=== PATIENT | female | born 1965 | race Caucasian/White ===

== ENCOUNTER 2023-11-28 12:28 | Emergency (ER) | payer OTHER, SELFPAY ==
[2023-11-28 12:32] VITALS: BP 164/88
[2023-11-28 13:09] LABS: % Basophils 0.5 % (0-2); % Eosinophils 1.5 % (0-6); % Immature Granulocytes 0.3 % (0-0.5); % Lymphocytes 47.1 % (20.5-51.1); % Monocytes 7.6 % (1.7-9.3); Absolute Eosinophils 0.1 10^3/uL (0-0.7); Absolute Lymphocytes 3.7 10^3/uL (1.2-3.4); Absolute Monocytes 0.6 10^3/uL (0.1-0.6); Absolute Neutrophils 3.3 10^3/uL (1.4-6.5); Hematocrit 40.9 % (37.0-47.0); Hemoglobin 13.6 g/dL (12.0-16.0); Mean Corp Hgb Conc. 33.3 g/dL (33.0-37.0); Mean Corpuscular Hgb 28.8 pg (27.0-31.0); Mean Corpuscular Volume 86.5 fL (81.0-99.0); Mean Platelet Volume 9.7 fL (7.4-10.4); Nucleated Red Blood Cells % 0 %; Platelet Count 299 10^3/uL (130-400); Red Blood Cell Count 4.73 10^6/uL (4.20-5.40); Red Cell Dist. Width 12.5 % (11.5-14.5); White Blood Cell Count 7.8 10^3/uL (4.8-10.8)
[2023-11-28 13:23] LABS: ALT (SGPT) 23 U/L (0-35); AST (SGOT) 18 U/L (14-36); Albumin 4.1 g/dl (3.5-5.0); Alkaline Phosphatase 103 U/L (38-126); Blood Urea Nitrogen 16 mg/dl (7-17); Calcium 10.3 mg/dl (8.4-10.2); Carbon Dioxide 26 mmol/L (22-30); Chloride 108 mmol/L (98-107); Glucose 207 mg/dl (70-99); Sodium 136 mmol/L (135-145); Total Bilirubin 0.5 mg/dl (0.2-1.3); Total Protein 6.7 g/dl (6.3-8.2); eGFR > 60.00
[2023-11-28 13:25] LABS: Urine Albumin 3+ (Neg - Trace); Urine Bilirubin 1+ (Negative); Urine Character Very Cloudy (Clear); Urine Color Red; Urine Glucose 2+ (Negative); Urine Ketone Trace (Negative); Urine Leukocyte Trace (Negative); Urine Nitrite Negative (Negative); Urine Occult Blood 4+ (Negative); Urine Specific Gravity 1.025 (<1.030); Urine Urobilinogen Negative (Neg - 1+)
[2023-11-28 13:39] LABS: Potassium 4.7 mmol/L (3.5-5.1)
[2023-11-28 14:02] LABS: Urine Red Blood Cell >100 /HPF (0-2)
--- NOTE | 2023-11-28 15:16 | ED.GENMED ---
History of Present Illness
General
Chief Complaint: Flank Pain
Source: patient
Time Seen by Provider: 11/28/23 14:53
Travel History
Have you had any contact with someone who has COVID-19?: No
Do you have any symptoms of coronavirus? Fever > 100 degrees, chills, cough, shortness of breath, sore throat, loss of taste or smell, muscle aches, or headache?: No
History of Present Illness
History of Present Illness:
58-year-old female with history coronary artery disease and kidney stones presents with severe right flank pain with nausea and hematuria. Pain started several weeks ago but increased over the past several days. She noted blood in the urine today.
No measurable fever. She is nauseous without vomiting. She has had multiple urologic procedures including lithotripsy and other interventions for her kidney stones. She feels as though this feels similar to prior kidney stones. No other
complaints at this time
Past History
Past History
ED Past Medical History: CAD, HTN, Hypercholesterolemia, NIDDM, [place], Valvular disease and Other
ED Past Surgical History: Appendectomy, Cardiac (Multiple cardiac stents) and Gynecological ( section)
Patient has exhibited threatening behavior?: No
Social History
Tobacco: Smoker
Alcohol: Occasional
Drug: None
Personal:
Living: with family
Employment: Employed
Family History
Family History: Other (reviewed and non-contributory)
Phy Exam
Physical Exam
Physical Exam:
General: Uncomfortable appearing female no acute respiratory distress
HEENT: Normocephalic atraumatic
Heart: Regular rate and rhythm
Lungs: Clear to auscultation bilaterally no wheezing
Abdomen: Soft tender over the right costovertebral angle no guarding or rebound normal bowel sounds nondistended
Extremities: No cyanosis
Course
Orders/Labs/Results
Orders:
Orders
11/28/23 12:47
CMP [Comprehensive Metabolic Panel] Urgent
Urinalysis Reflex To Culture Urgent
Date Specimen was Collected: 11/28/23
Time Specimen was Collected: 12:35
Urine Microscopic Reflex Cult Urgent
11/28/23 12:50
CBC/With Diff [Complete Blood Count/With Diff] Urgent
11/28/23 15:00
CT Abd/pel Without Iv Or Oral Urgent
Comment:
Reason For Exam: right flank pain, hematuria
0.9% Sodium Chloride 1000 ml [Nss] 1,000 ml IV BOLUS
11/28/23 15:07
Ondansetron Injectable [Zofran] 4 mg IV NOW STA
11/28/23 15:08
HYDROmorphone [Dilaudid] 0.5 mg IV NOW STA
11/28/23 16:01
HYDROmorphone [Dilaudid] 0.5 mg IV NOW STA
11/28/23 18:14
HYDROmorphone [Dilaudid] 0.5 mg IV NOW STA
Ondansetron Injectable [Zofran] 4 mg IV NOW STA
Abnormal Lab Results
11/28/23 11/28/23
12:47 12:50
Absolute Lymphs (auto) 3.7 H 10^3/uL
(1.2-3.4)
Chloride 108 H mmol/L
(98-107)
Glucose 207 H mg/dl
(70-99)
Calcium 10.3 H mg/dl
(8.4-10.2)
Urine Ketones Trace A
(Negative)
Ur Occult Blood Reflex 4+ A
(Negative)
Urine Bilirubin 1+ A
(Negative)
Leukocyte Esterase Rfl Trace A
(Negative)
Urine RBC >100 A /HPF
(0-2)
Urine Glucose 2+ A
(Negative)
Urine Albumin (Reflex) 3+ A
(Neg - Trace)
11/28/23 12:50
11/28/23 12:47
Vital Signs
Initial and Last Documented VS:
Initial Vital Signs
Temp Pulse Resp BP Pulse Ox
99.2 F 68 16 164/88 98
11/28/23 12:32 11/28/23 12:32 11/28/23 12:32 11/28/23 12:32 11/28/23 12:32
Last Documented Vital Signs
Temp Pulse Resp BP Pulse Ox
99.2 F 53 18 127/64 99
11/28/23 12:32 11/28/23 17:57 11/28/23 17:57 11/28/23 17:57 11/28/23 17:57
MDM/Problems Addressed
Differential Diagnosis Includes:
Right flank pain and urinary symptoms with hematuria. UTI versus pyelonephritis versus ureterolithiasis.
Check labs and urine. CT pending. Patient is on anticoagulants cannot do NSAIDs. Zofran fluids and Dilaudid ordered
*Critical Care Note
Total Time (30-74mins, 75-104mins- exclusive of procedures): Not Applicable
Update Note
Update Note:
CT demonstrates 3 mm stone at the right UVJ. No UTI. Patient feeling better after medication and reassessment. Will trial passage at home with medications for pain nausea and Flomax. Urology referral made and return to [facility]
ED Attending Note
-
Portions of this chart may have been created with voice recognition software.� Occasional wrong word or��sound alike� substitutions may have occurred due to the inherent limitations of voice recognition software.
Discharge Plan
Departure
Patient Disposition: Home (Routine Discharge)
Date of Disposition: 11/28/23
Time of Disposition: 18:21
Patient with high blood pressure during this ER visit?: No
Discharge Problem:
Kidney stone
Instructions: Kidney Stones (DC), How to Strain Your Urine
Prescriptions:
New
oxycodone-acetaminophen [Percocet] 5-325 mg tablet
1 tab PO Q6HPRN PRN (Reason: pain) Qty: 10 0RF
ondansetron 4 mg tablet,disintegrating
4 mg PO Q8H PRN (Reason: nausea and vomiting) Qty: 10 0RF
tamsulosin [Flomax] 0.4 mg capsule
0.4 mg PO DAILY Qty: 14 0RF
No Action
lisinopril 20 MG tablet
40 mg PO DAILY
aspirin 81 MG tablet,delayed release (DR/EC)
81 mg PO DAILY
glimepiride 2 MG tablet
2 mg PO DAILY
amlodipine 10 MG tablet
10 mg PO DAILY
sitagliptin phosphate [Januvia] 100 MG tablet
100 mg PO DAILY
ticagrelor [Brilinta] 90 MG tablet
90 mg PO BID Qty: 180 3RF
atorvastatin 80 MG tablet
80 mg PO QPM Qty: 90 3RF
nitroglycerin 0.4 MG tablet, sublingual
0.4 mg sublingual [id number] PRN (Reason: chest pain ) Qty: 25 5RF
Rx Instructions:
Take 1 tab under the tongue every 5 minutes x 3 doses prn chest pain
Referrals:
Ellen Herrera PA-C [Family Provider] -
Randy Thompson Jr., MD [Active] -
Activity Restrictions/Additional Instructions:
Drink plenty of fluids. Use pain medicine as needed and nausea medicine as needed. Take Flomax daily as directed. Please return here for increased vomiting fever or intractable pain. Follow-up with urology otherwise
Interventions
Interventions:
RE-Sprgdp-Evmhyrzovi Assessment Last Done: 11/28/23 15:34
ED-Female Genitourinary Assessment Last Done: 11/28/23 15:34
[2023-11-28] MEDS: NSS 1000 IV (15:28)
[2023-11-28] MEDS: ZOFRAN 4 MG IV ×2 (15:28→18:23)
[2023-11-28] MEDS: DILAUDID 0.5 MG IV ×3 (15:28→18:24)
[2023-11-28 17:57] VITALS: BP 127/64
== END 2023-11-28 18:39 | disposition home or self-care (01) ==
LOC: EMR 12:28
PROVIDERS: Emergency Medicine; EMERGENCY PHYSICIAN Emergency Medicine; FAMILY PHYSICIAN Physician Assistant Medical
DX: N20.0 Calculus of kidney (principal); R11.0 Nausea; I25.10 Atherosclerotic heart disease of native coronary artery without angina pectoris; I10 Essential (primary) hypertension; E11.9 Type 2 diabetes mellitus without complications; E78.00 Pure hypercholesterolemia, unspecified; I38 Endocarditis, valve unspecified; F17.200 Nicotine dependence, unspecified, uncomplicated; I25.2 Old myocardial infarction; Z87.442 Personal history of urinary calculi; Z95.5 Presence of coronary angioplasty implant and graft; Z79.82 Long term (current) use of aspirin; Z79.84 Long term (current) use of oral hypoglycemic drugs; Z88.1 Allergy status to other antibiotic agents; Z88.3 Allergy status to other anti-infective agents; Z91.048 Other nonmedicinal substance allergy status
CPT/HCPCS: 99284; 96374; 96375; 96361; 96376 ×3; 74176; 80053; 81003; 81015; 85025

== ENCOUNTER 2024-02-11 11:17 | Inpatient (IN) | payer OTHER, SELFPAY ==
[2024-02-10 19:44] VITALS: BP 194/97; BMI 32.2
[2024-02-10 20:07] LABS: % Basophils 0.6 % (0-2); % Eosinophils 1.7 % (0-6); % Immature Granulocytes 0.2 % (0-0.5); % Lymphocytes 50.4 % (20.5-51.1); % Monocytes 8.2 % (1.7-9.3); % Neutrophils 38.9 % (42.2-75.2); Absolute Basophils 0.1 10^3/uL (0-0.2); Absolute Eosinophils 0.2 10^3/uL (0-0.7); Absolute Lymphocytes 4.5 10^3/uL (1.2-3.4); Absolute Monocytes 0.7 10^3/uL (0.1-0.6); Absolute Neutrophils 3.5 10^3/uL (1.4-6.5); Hematocrit 40.7 % (37.0-47.0); Mean Corp Hgb Conc. 34.4 g/dL (33.0-37.0); Mean Corpuscular Hgb 29.4 pg (27.0-31.0); Mean Corpuscular Volume 85.3 fL (81.0-99.0); Mean Platelet Volume 9.7 fL (7.4-10.4); Nucleated Red Blood Cells % 0 %; Platelet Count 310 10^3/uL (130-400); Red Blood Cell Count 4.77 10^6/uL (4.20-5.40); Red Cell Dist. Width 12.6 % (11.5-14.5); White Blood Cell Count 8.9 10^3/uL (4.8-10.8)
[2024-02-10 20:26] LABS: ALT (SGPT) 24 U/L (0-35); AST (SGOT) 21 U/L (14-36); Albumin 4.3 g/dl (3.5-5.0); Alkaline Phosphatase 105 U/L (38-126); Blood Urea Nitrogen 22 mg/dl (7-17); Carbon Dioxide 28 mmol/L (22-30); Chloride 106 mmol/L (98-107); Estimated Creatinine Clearance 110 ml/min; Glucose 131 mg/dl (70-99); Potassium 3.9 mmol/L (3.5-5.1); Sodium 137 mmol/L (135-145); Total Bilirubin 0.3 mg/dl (0.2-1.3); Total Protein 7.1 g/dl (6.3-8.2); eGFR > 60.00
[2024-02-10 20:29] LABS: Troponin I < 0.012 ng/ml
[2024-02-10 21:22] VITALS: BP 164/96
--- NOTE | 2024-02-10 21:45 | ED.GENMED ---
History of Present Illness
General
Chief Complaint: Chest Pain
Source: patient
Exam Limitations: none
Time Seen by Provider: 02/10/24 21:50
Nursing documentation reviewed up to this point in time: agreed with
Travel History
Have you had any contact with someone who has COVID-19?: No
Do you have any symptoms of coronavirus? Fever > 100 degrees, chills, cough, shortness of breath, sore throat, loss of taste or smell, muscle aches, or headache?: No
History of Present Illness
History of Present Illness:
58-year-old female presents emergency room complaining of chest pain and diaphoresis. She had pain earlier, and it worsened, and had left arm pain accompanying. She has a history of coronary artery disease with 6 stents.
Past History
Past History
ED Past Medical History: CAD, HTN, Hypercholesterolemia, NIDDM, [place], Valvular disease and Other
ED Past Surgical History: Appendectomy, Cardiac (Multiple cardiac stents) and Gynecological ( section)
Patient has exhibited threatening behavior?: No
Social History
Tobacco: Smoker
Alcohol: Occasional
Drug: None
Personal:
Living: with family
Employment: Employed
Family History
Family History: Other (reviewed and non-contributory)
Review of Systems
Review of Systems
Allergies reviewed?: Yes
All Other Systems: Not applicable
Constitutional: Reports no symptoms
EENT: Reports no symptoms
Respiratory: Reports no symptoms
Cardiac: Reports diaphoresis and palpitations
ABD/GI: Reports no symptoms
: Reports no symptoms
Musculoskeletal: Reports no symptoms
Skin: Reports no symptoms
Neurological: Reports no symptoms
Endocrine: Reports no symptoms
Hematologic/Lymphatic: Reports no symptoms
Psychiatric: Reports no symptoms
Phy Exam
Physical Exam
Physical Exam:
Physical Exam
General: Afebrile
Neck: supple. no meningeal signs. normal posterior pharynx
Heart: s1/s2 regular rate and rhythm, no murmur. equal radial
pulses.
HEENT: Pupils equal round reactive to light, EOMI
Lungs: no acute respiratory distress. clear bilaterally
Abdomen: normal bowel sounds. not tender. no CVAT
Neuro: alert and oriented. no focal neurological deficits cranial nerves II through XII intact
Skin: no rash
Psychiatric: well kept. interactive and cooperative
Extremities: no edema. no calf tenderness. negative homans. good distal pulses
Scores
Heart Score for Chest Pain Patients
STEMI patient?: No
History: Moderately Suspicious
ECG: Normal
Age: >45 - <65 years
Risk Factors: >/= 3 Risk Factors or History of CAD
Troponin: </= Normal Limit
Heart Score for Chest Pain Patients: 4
Heart Score Risk: 20.3% MACE over next 6 weeks
Course
Orders/Labs/Results
Orders:
Orders
02/10/24 19:42
Electrocardiogram (*1) Urgent
Reason for Study: Chest Pain
Cardiac Monitoring- Treatment ONCE
EKG- Treatment ONCE
IV Insert/Care/Rem.- Treatment PRN
O2 Therapy [RESP] Urgent
Titrate/Wean O2 to maintain O2 sat greater than (%): 90
Special Instructions: Maintain sats >/=90%
Pulse Ox/spot Check [RESP] Urgent
Quantity: 1
Special Instructions: ON ROOM AIR
02/10/24 19:55
Complete Blood Count/With Diff Urgent
Comprehensive Metabolic Panel Urgent
Troponin I Urgent
02/10/24 22:17
Aspirin 325 mg PO NOW STA
02/10/24 22:19
Nitroglycerin Sublingual [Nitrostat (Sublingual)] 0.4 mg SL NOW STA
Abnormal Lab Results
02/10/24
19:55
Absolute Lymphs (auto) 4.5 H 10^3/uL
(1.2-3.4)
Absolute Monos (auto) 0.7 H 10^3/uL
(0.1-0.6)
Neutrophils % 38.9 L %
(42.2-75.2)
BUN 22 H mg/dl
(7-17)
Glucose 131 H mg/dl
(70-99)
Calcium 11.0 H mg/dl
(8.4-10.2)
02/10/24 19:55
02/10/24 19:55
Vital Signs
Initial and Last Documented VS:
Initial Vital Signs
Temp Pulse Resp BP Pulse Ox
98.5 F 67 18 194/97 98
02/10/24 19:44 02/10/24 19:44 02/10/24 19:44 02/10/24 19:44 02/10/24 19:44
Last Documented Vital Signs
Temp Pulse Resp BP Pulse Ox
98.5 F 69 10 158/78 95
02/10/24 19:44 02/10/24 22:30 02/10/24 22:30 02/10/24 22:13 02/10/24 22:30
MDM/Problems Addressed
Differential Diagnosis Includes:
ACS, GERD
MDM/Problems Addressed:
58-year-old female with chest pain, cannot rule out ACS. Admit to hospitalist. Discussed with Dr. Shine, cardiology who requests to see in consult.
Chronic conditions affecting care: DM and CAD
Acute Exacerbation and/or Progression of Chronic Illness: DM and CAD
*Pulse Oximetry
Patient hypoxic: no
*EKG
Interpreted by ED Provider?: Yes
EKG Intrepretation Date: 02/10/24
EKG Intrepretation Time: 19:44
Interpretation: abnormal
Comparison EKG: no changes
Heart Rate: 56
Rate: bradycardiac
Rhythm: sinus
Reagan: normal axis
Interval: normal interval
QRS Pattern: normal QRS
Ischemia: no ischemia
*Tool Grinder Operator External Interpretation
Rate: bradycardiac
Interpretation: abnormal
Heart Rate: 56
Rhythm: sinus
*Critical Care Note
Total Time (30-74mins, 75-104mins- exclusive of procedures): Not Applicable
Data Reviewed
Review of Other/Old Records Reveals: Operative Reports (Prior cardiac catheterization by Dr. Epps, 01/09/2022, PCI of 90% proximal mid circumflex lesion, successful PCI of 70% diagonal lesion)
Patient Management
Social determinants of health affecting care: Living situation
Discussion with other providers: Hospitalist and Oriental Rug Stretcher (Discussed with Dr. Shine, cardiology, recommends hospitalist admission)
Escalation/DeEscalation of care consider admission/obs:
Admit indicated
ED Attending Note
-
Portions of this chart may have been created with voice recognition software.� Occasional wrong word or��sound alike� substitutions may have occurred due to the inherent limitations of voice recognition software.
Discharge Plan
Departure
Patient Disposition: Admit
Date of Disposition: 02/10/24
Time of Disposition: 22:44
Admit to: IVU
Presentation/result/management discussed w/ accepting MD/DO: Hospitalist
Patient with high blood pressure during this ER visit?: Yes
Condition: Good
Discharge Problem:
Unstable angina
Prescriptions:
No Action
lisinopril 20 MG tablet
40 mg PO DAILY
aspirin 81 MG tablet,delayed release (/EC)
81 mg PO DAILY
glimepiride 2 MG tablet
2 mg PO DAILY
amlodipine 10 MG tablet
10 mg PO DAILY
sitagliptin phosphate [Januvia] 100 MG tablet
100 mg PO DAILY
ticagrelor [Brilinta] 90 MG tablet
90 mg PO BID Qty: 180 3RF
atorvastatin 80 MG tablet
80 mg PO QPM Qty: 90 3RF
nitroglycerin 0.4 MG tablet, sublingual
0.4 mg sublingual [id number] PRN (Reason: chest pain ) Qty: 25 5RF
Rx Instructions:
Take 1 tab under the tongue every 5 minutes x 3 doses prn chest pain
oxycodone-acetaminophen [Percocet] 5-325 mg tablet
1 tab PO Q6HPRN PRN (Reason: pain) Qty: 10 0RF
ondansetron 4 mg tablet,disintegrating
4 mg PO Q8H PRN (Reason: nausea and vomiting) Qty: 10 0RF
tamsulosin [Flomax] 0.4 mg capsule
0.4 mg PO DAILY Qty: 14 0RF
Interventions
Interventions:
*Risk Screen - Suicide Last Done: 02/10/24 19:44
*General Assessment Last Done: 02/10/24 19:44
*Neglect/Abuse Screening Last Done: 02/10/24 19:44
ED- Fall Risk Assessment Last Done: 02/10/24 19:44
*ED COVID-19 Vaccine History Last Done: 02/10/24 19:44
ED- Cardiac Assessment Last Done: 02/10/24 21:50
Discharge Date and Time
Print Language: [place]
[2024-02-10 22:13] VITALS: BP 158/78
[2024-02-10] MEDS: NITROSTAT (SUBLINGUAL) 0.400000000000000022 MG SL (22:26)
[2024-02-10] MEDS: ASPIRIN 325 MG PO (22:26)
[2024-02-10 23:00] VITALS: BP 168/80
--- NOTE | 2024-02-10 23:12 | HPS.HSE ---
Family Physician
-
Family Physician: Ellen Herrera PA-C
Chief Complaint
-
Chest pressure
History of Present Illness
58-year-old female complaining of midsternal chest pressure with indigestion, diaphoresis, nausea, headache on and off since this morning then with development of pain to left forearm. She took 1 nitroglycerin prior to arrival with some relief was
given additional nitroglycerin in triage which took pain from 6 out of 10 down to current 3 out of 10. She denies fever, chills, sore throat, palpitations, shortness of breath, cough, abdominal pain, vomiting, diarrhea, urinary symptoms. She has
past medical history of CAD/[place] with 6 stents, HTN, HLD, DM2,former smoker stopped December 2023, chronic left shoulder pain with slight limited range of motion
Medical History
Past Medical History
Past Medical History: Reports Other
Additional Past Medical History:
CAD/[place] with 6 stents(12/17/2021 4 stents, and December 2021 - stents)
HTN
HLD
DM2
valvular disease
Former smoker stopped December 2023
Renal calculi
Chronic left shoulder pain with slight limited range of motion
Past Surgical History: Reports Other
Additional Past Surgical History:
Cardiac stents x 6 (12/17/2021 4 stents, and December 2021 stents)
section
Lithotripsy cystoscopy secondary to kidney stones
Social History
Tobacco: Former Smoker (30-year 1/2 pack/day stopped December 2023)
Alcohol: None
Drug: None
Personal:
Living: With Family
Employment: Retired
Family History
Family History: Early CAD (Mother age 46 [place], father age 63 CABG/[place] Brother age 52 [place])
Allergies / Home Medications
Allergies reflects when Allergies were last updated in [facility].
Home Medications with original date entered in [facility]
Allergy/Medication List:
Allergies
Allergy/AdvReac Type Severity Reaction Status Date / Time
adhesive Allergy Intermediate Rash Verified 02/10/24 19:42
cefuroxime axetil Allergy Swelling Verified 02/10/24 19:42
[From Ceftin]
Cephalosporins Allergy Swelling Verified 02/10/24 19:42
Home Medications
aspirin 81 mg tablet,delayed release 81 mg PO DAILY Blood clot prevention/tx 12/17/21
atorvastatin 80 mg tablet 80 mg PO DAILY 02/10/24
diltiazem HCl 240 mg capsule,extended release 24 hr 240 mg PO DAILY 02/10/24
ezetimibe 10 mg tablet 10 mg PO DAILY 02/10/24
glimepiride 4 mg tablet 4 mg PO DAILY 02/10/24
lisinopril 40 mg tablet 40 mg PO DAILY 02/10/24
Review of Systems
-
History Source: Patient
A 12 point ROS was completed and negative except as noted: Yes
Constitutional: Denies Fever or Chills
EENT: Denies Sore Throat or Runny Nose
Respiratory: Denies Cough or Trouble Breathing
Cardiac: Reports Chest Pain (Midsternal chest pressure) and Diaphoresis; Denies Palpitations or Syncope
Abdomen/GI: Reports Nausea; Denies Abdominal Pain, Vomiting, Diarrhea, Constipated, Bloody Stools, Black Stools or Anorexia
: Denies Dysuria, Frequency, Flank Pain, Incontinence, Difficulty Voiding, Urgency or Bleeding
Musculoskeletal: Denies Joint Pain or Edema
Skin: Denies Itching or Rash
Neurological: Denies Dizzy, Headache or Weakness
Endocrine: Reports No Symptoms
Hematologic/Lymphatic: Reports No Symptoms
Psych: Reports Calm
Physical Exam
Vital Signs
Vital Signs
Temp Pulse Resp BP Pulse Ox
98.5 F 69 10 158/78 95
02/10/24 19:44 02/10/24 22:30 02/10/24 22:30 02/10/24 22:13 02/10/24 22:30
Physical Exam
General: Conversant and Pain (3 out of 10 midsternal chest pressure); No Fever or Chills
HEENT: NormoCephalic, Anicteric, PERRLA, Huson Conjunctivae and No Ptosis; No Pharyngeal Efythema
Respiratory: Clear; No Wheezes, Rales or Rhonchi
Cardiac: Bradycardia (Sinus); No Murmur, Rub, Gallop or Peripheral Edema
Breast: Deferred by me
GI: Soft, Non Tender, Non Distended, Normal Bowel Sounds and No Hepatosplenomegaly
Rectal: Deferred by Provider
Genito-urinary: Deferred by me
Musculoskeletal: No Clubbing, No Cyanosis and No Edema
Skin: Warm and Dry; No Rash
Neuro: AO x 3, No Motor Deficits, Nonfocal/grossly intact, Cranial Nerves Intact and No Sensory Deficits; No Slurred Speech, Facial Droop or Tremors
Psych: Calm
Laboratory Results
-
02/10/24 19:55
02/10/24 19:55
Laboratory Results
Total Bilirubin 0.3 mg/dl (0.2-1.3) 02/10/24 19:55
AST 21 U/L (14-36) 02/10/24 19:55
ALT 24 U/L (0-35) 02/10/24 19:55
Alkaline Phosphatase 105 U/L (38-126) 02/10/24 19:55
Troponin I < 0.012 ng/ml 02/10/24 19:55
Impression/Plan
-
Impression/plan:
Obs IVU
#Chest pain concern for unstable angina
#CAD/[place] x 6 stents( 4 dec 17 2021, 2 in end dec 2021) storng family hx
-Trend troponins
-Iv morphine prn pain
- Iv protonix
-N.p.o. after midnight in case cardiac cath needed
-Consult CBC cardiology
-Continue aspirin 81 mg daily, atorvastatin 80 mg daily, Zetia 10 mg daily
-Check lipid profile
EKG sinus bradycardia 58 bpm, QTc 428 MS no significant change from July 2022
2D echo 04/22/2022: EF 55 to 60%, normal LVS LVSF, no wall abnormalities, aortic sclerosis approaching stenosis
#Hypercalcemia
Calcium 11.0
Check PTH, vitamin D
#HTN-benign
158/78
-Continue lisinopril 40 mg daily, diltiazem 240 mg daily
#DM2
-Accu-Cheks with SSI, check HgbA1c
-HOLD glimepiride 4 mg daily
# Former nicotine abuse
-Stopped approx-6 weeks ago December 2023, prior 30 years 1/2 pack/day
DVT prophylaxis
sq heparin
Full code
--- NOTE | 2024-02-10 23:35 | W.PN.UPDATE ---
Update Note
Progress Note Update
This is an addendum to the H&P written by INES Snow on 02/10/2024.
Patient seen and examined independently with SPEEDBOAT DRIVER. 58-year-old female past medical history of CAD status post 6 stents, hypertension, hypercholesteremia, diabetes, presenting with chest pain described as pressure/fullness associated with sweating and
nausea and left arm pain similar to prior heart attacks. Nitro does help but pain returned afterwards.
EKG shows sinus bradycardia, LVH, without any ischemic changes. Concern for unstable angina. Troponin negative. Trend troponins. Aspirin given. As needed morphine for pain. Start PPI. N.p.o. past midnight. Cardiology consulted.
Patient with hypercalcemia on labs. Check PTH, vitamin D.
[2024-02-10] MEDS: PROTONIX IV 40 MG IV (23:46)
[2024-02-11] VITALS (17 sets, daily range): BP systolic 114–201; BP diastolic 60–101; BMI 32.2
[2024-02-11 01:43] LABS: Troponin I < 0.012 ng/ml
--- NOTE | 2024-02-11 01:58 | PTCARENOTE ---
Patient admitted to IVU. Chest pain resolved, SB on telemetry, BP elevated, cuffed changed to a long cuff, 169/79. Troponin number 2 collected and resulted WNL. Plan of care reviewed. Patient comfortable in bed, lights off, call chase in reach
[2024-02-11] MEDS: TYLENOL 650 MG PO ×3 (03:12→18:24)
--- NOTE | 2024-02-11 03:17 | PTCARENOTE ---
Patient with lower back pain. Repositioned in bed,Tylenol given
[2024-02-11 06:11] LABS: % Basophils 0.6 % (0-2); % Eosinophils 2.1 % (0-6); % Immature Granulocytes 0.2 % (0-0.5); % Lymphocytes 57.5 % (20.5-51.1); % Monocytes 8.6 % (1.7-9.3); Absolute Basophils 0.1 10^3/uL (0-0.2); Absolute Eosinophils 0.2 10^3/uL (0-0.7); Absolute Lymphocytes 4.8 10^3/uL (1.2-3.4); Absolute Monocytes 0.7 10^3/uL (0.1-0.6); Absolute Neutrophils 2.6 10^3/uL (1.4-6.5); Hematocrit 39.2 % (37.0-47.0); Hemoglobin 12.9 g/dL (12.0-16.0); Mean Corp Hgb Conc. 32.9 g/dL (33.0-37.0); Mean Corpuscular Hgb 28.7 pg (27.0-31.0); Mean Corpuscular Volume 87.1 fL (81.0-99.0); Mean Platelet Volume 9.8 fL (7.4-10.4); Nucleated Red Blood Cells % 0 %; Platelet Count 247 10^3/uL (130-400); Red Cell Dist. Width 12.7 % (11.5-14.5); White Blood Cell Count 8.3 10^3/uL (4.8-10.8)
--- NOTE | 2024-02-11 06:20 | PTCARENOTE ---
Back pain relieved with repositioning and Tylenol. Labs and EKG completed
[2024-02-11 06:29] LABS: ALT (SGPT) 22 U/L (0-35); AST (SGOT) 19 U/L (14-36); Albumin 3.7 g/dl (3.5-5.0); Alkaline Phosphatase 99 U/L (38-126); Blood Urea Nitrogen 21 mg/dl (7-17); Calcium 10.6 mg/dl (8.4-10.2); Carbon Dioxide 25 mmol/L (22-30); Chloride 104 mmol/L (98-107); Estimated Creatinine Clearance 111 ml/min; Glucose 149 mg/dl (70-99); HDL Cholesterol 46 mg/dl; LDL Cholesterol, Calculated 161 mg/dl; Sodium 137 mmol/L (135-145); Total Bilirubin 0.3 mg/dl (0.2-1.3); Total Cholesterol 271 mg/dl (50-199); Total Protein 6.1 g/dl (6.3-8.2); Triglyceride 321 mg/dl (10-149); Very Low Density Lipoprotein 64 mg/dl (0-30); eGFR > 60.00
[2024-02-11 06:34] LABS: Troponin I < 0.012 ng/ml
[2024-02-11 06:40] LABS: Vitamin D, 25-OH*** 22.8 ng/mL (30-80)
[2024-02-11] MEDS: NOVOLOG FLEXPEN-LOW RESISTANCE SC ×2 (07:05→14:33)
[2024-02-11] MEDS: LIPITOR 80 MG PO (08:26)
[2024-02-11] MEDS: ASPIR LOW (ENTERIC COATED) 81 MG PO (08:26)
[2024-02-11] MEDS: ZETIA 10 MG PO (08:26)
[2024-02-11] MEDS: ZESTRIL 40 MG PO (08:28)
[2024-02-11] MEDS: PROTONIX IV 40 MG IV (08:29)
[2024-02-11] MEDS: NSS (PRESERVATIVE FREE) 10 ML IV (08:30)
[2024-02-11] MEDS: HEPARIN 5000 UNITS SC ×2 (08:33→21:44)
--- NOTE | 2024-02-11 08:51 | PTCARENOTE ---
Cardizem CD dose held this am as per parameter, pt's HR 49.
[2024-02-11 09:21] LABS: Glucose - Point of Care 163 mg/dl (70-99)
[2024-02-11 09:40] LABS: Glycohemoglobin (HgbA1c) 8.4 % (4.0-5.6)
--- NOTE | 2024-02-11 09:56 | CON.CAR ---
Addendum entered and electronically signed by Alvaro Norwood MD 02/11/24 11:08:
I saw and examined the patient.
The PUBLISHING EDITOR's note was reviewed and I agree with the note.
Comment: 58F with active tobacco use, DMII, and recurrent/severe CAD admitted with CP reminiscent of her angina/CO/PCI pain. EKG and troponin are reassuring.
- Unstable angina -> add UFH. Continue other medical therapy
- We discussed escalating med Rx only, adding stress test, or proceeding to LHC. We discussed risks, benefits, and alternatives of each. I felt med RX & LHC was best strategy given her poorly controlled risk factors and aggressive disease. She
agreed
Original Note:
Consultation
Consultation Request
Date/Time Consultation Requested: 02/10/24 [id number]
Date/Time Consultation Performed: 02/11/24 0950
Requesting Provider: Lisa Snow NP
Performing Provider: Joaquina CAVAZOS for Dr. Norwood
Reason for Consultation: Chest discomfort
Medical History
-
Chief Complaint: chest discomfort
History of Present Illness:
58 y/o female with history of CAD with multiple stents, hypertension, DM, smoker, and anxiety who is here for evaluation of chest discomfort. Briefly, yesterday AM she woke up and felt some epigastric burning, which worsened throughout the day.
Later, she had nausea, left arm pain, 'hot flashes', and shoulder blade discomfort. She was also fatigued. She took Prilosec and Tums, without help. She took nitro, which helped but then symptoms returned. They got worse throughout the day. She came
to the ER, where EKG and trops fine. She is CP free at the time of my assessment.
Past Medical History
Past Medical History: CAD, HTN, NIDDM and Psychiatric (anxiety)
Social History
Tobacco: Former Smoker (quit a few days ago)
Family History
Family History: Early CAD
Allergies / Home Medications
Allergy/AdvReac Type Severity Reaction Status Date / Time
adhesive Allergy Intermediate Rash Verified 02/11/24 00:57
cefuroxime axetil Allergy Swelling Verified 02/11/24 00:57
[From Ceftin]
Cephalosporins Allergy Swelling Verified 02/11/24 00:57
�Medication �Instructions �Recorded �Confirmed �Type
aspirin 81 mg tablet,delayed 81 mg PO DAILY Blood clot 12/17/21 02/11/24 History
release prevention/tx
atorvastatin 80 mg tablet 80 mg PO DAILY High Cholesterol 02/10/24 02/11/24 History
diltiazem HCl 240 mg 240 mg PO DAILY Blood Pressure 02/10/24 02/11/24 History
capsule,extended release 24 hr
ezetimibe 10 mg tablet 10 mg PO DAILY High Cholesterol 02/10/24 02/11/24 History
glimepiride 4 mg tablet 4 mg PO DAILY Diabetes 02/10/24 02/11/24 History
lisinopril 40 mg tablet 40 mg PO DAILY Blood Pressure 02/10/24 02/11/24 History
Review of Systems
-
History Source: Patient
All other systems: Negative unless noted
Constitutional: Other ('hot flashes')
Cardiac: Chest Pain
Abdomen/GI: Nausea
Musculoskeletal: Other (shoulder discomfort, arm pain)
Physical Exam
Vital Signs
Temp Pulse Resp BP Pulse Ox
98.3 F 46 16 142/87 96
02/11/24 07:00 02/11/24 08:40 02/11/24 07:00 02/11/24 07:15 02/11/24 07:53
Lab Results
02/11/24 05:43
02/11/24 05:44
Troponin I < 0.012 ng/ml 02/11/24 05:43
Physical Exam
General: Well Developed, Well Nourished and No Apparent Distress
HEENT: Normocephalic and Anicteric
Respiratory: Clear and Non Labored Respirations
Cardiac: Regular Rhythm (SB) and Murmur (II/ systolic)
Breast: Deferred by me
Musculoskeletal: No Edema
Skin: Warm and Dry
Neuro: AO x 3
Impression / Plan
-
Chest discomfort:
-trops and EKGs unremarkable
-echo pending
-concerning for unstable angina (high risk diagnosis) in this patient with CAD with history of multiple stents with similar symptoms prior to stenting in the past
-ASA administered
-likely cath- will discuss with Dr. Norwood
CAD with history of multiple stents:
-continue aspirin, statin
HTN:
-elevated overnight, now improved
-continue ACEI, dilt held with bradycardia- monitor HR and adjust if needed
Dyslipidemia:
-not well-controlled
-LDL 161 despite atorvastatin and zetia
-PCSK9 inhibitor as OP
DM:
-per primary
-hgbA1C is pending
Smoker:
-quit a few days ago
-we discussed the importance of staying tobacco free
Data Reviewed
-
EKG: Tracing Personally Visualized and interpreted (SB 48 BPM)
Medical Tests (Nuc Med, Echo etc): Report Reviewed by me (echo 04/22/22: LV ejection fraction is 55-60%. Aortic sclerosis approaching stenosis.)
Labs: Labs Reviewed by me
[2024-02-11 10:41] LABS: Intact PTH 66.5 pg/ml (13.6-85.8)
--- NOTE | 2024-02-11 11:07 | ITS.CL.CATH ---
Parole Hearing Officer - Catheterization
Cardiac Catheterization
Procedure Report:
LEFT HEART CATHETERIZATION AND CORONARY INTERVENTION
Date of Procedure: February 11, 2024
Referring: Alvaro Norwood MD
PROCEDURES:
1. Left catheterization, coronary angiogram.
2. Ultrasound-guided access.
3. Successful percutaneous coronary artery intervention of a focal, hazy 80% in-stent restenosis in the distal RCA with a 3.0 x 18 mm Xience dave point drug-eluting stent, postdilated with a 3.0 x 15 mm NC balloon at 18 yanick with an excellent
angiographic result.
INDICATION: Ms Julien is a 58-year-old female with active tobacco use, avl-nqiltpo-fsehidhny type 2 diabetes mellitus, morbid obesity, severe hyperlipidemia despite 2 agents, coronary artery disease status post multiple prior stents in the RCA, left
circumflex/OM, diagonal in 2021 who presents with chest discomfort similar to prior episodes at which time she needed interventions found to have negative troponins with no significant ischemic changes on EKG now being referred for left heart
catheterization to rule out obstructive CAD due to concern for unstable angina.
ACCESS: Right radial artery, 6 Andorran sheath, under ultrasound guidance
HEMODYNAMICS : (mmHg)
AO (s/d) : 172/82
LV (s/d) : 176/10
LVEDP : 18
CORONARY FINDINGS
DOMINANCE: Right.
LEFT MAIN: The left main artery is a large-caliber vessel that trifurcates into the left anterior descending artery a very small caliber ramus intermedius branch and the left circumflex artery. There is minimal luminal irregularities.
LEFT ANTERIOR DESCENDING: The left anterior descending artery is a large-caliber vessel which gives rise to 1 significant diagonal branch. Prior stent in the diagonal branch is widely patent. Mild diffuse atherosclerotic plaque within the LAD.
RAMUS INTERMEDIUS: The ramus intermedius branch is a very small caliber, vestigial vessel.
CIRCUMFLEX: The left circumflex artery is a large-caliber, nondominant vessel giving rise to 1 large marginal branch. Prior stent in the proximal vessel is widely patent as is the stent in OM1. There is mild diffuse atherosclerotic plaque
otherwise.
RIGHT CORONARY ARTERY: The right coronary artery is a large-caliber, dominant vessel which gives rise to the right posterior descending artery and the right posterolateral system. There is a focal, hazy 80% in-stent restenosis within the distal RCA
stent proximal to the RPDA. Prior stents from 2021 in the proximal and RPDA are patent. There is 30 to 40% in-stent restenosis in the proximal RCA. The distal RCA in-stent restenosis was thought to be the culprit for presenting unstable angina
and decision was made to move forward with percutaneous intervention.
CORONARY INTERVENTION: The right coronary artery was selectively engaged using a 6 Andorran JR4 guide catheter. Additional heparin was given to maintain a therapeutic ACT throughout the case. We advanced a 190 cm 0.014' BMW coronary wire across the
distal RCA stenosis with some difficulty into the RPDA. At this point we tried to introduce a 3.0 x 12mm semi-compliant balloon however we could not successfully advance past the mid RCA despite multiple attempts. We attempted rewiring given
concern that the wire may have gotten under the prior stent struts and despite this we kept running into the same issue. At this point a guide liner was introduced to help facilitate delivery of balloons and stents. We were able to successfully
advance the guide liner into the mid RCA and then again struggled advancing the balloon at the same spot. A third attempt was made to rewire the vessel into the RPDA given concern that the wire had gone under a prior stent strut. We were now
successfully able to deliver the 3.0 x 12 mm semi-compliant balloon to help pre-dilate the lesion at 14 yanick with good expansion. A 3.0 x 18 mm Xience dave point drug-eluting stent was introduced and deployed in the distal RCA and postdilated using a
3.0 x 15 mm NC balloon at 18 yanick with an excellent angiographic result. Patient was loaded with 60 mg of prasugrel at the end of the case. No acute complications.
SEDATION: 66 minutes of procedural sedation was utilized. An independent medical care manager was present to assist with and help manage the patient's level of consciousness and physiologic status.
RADIATION SUMMARY: Fluoro Time (min): 11.2, Dose (mGy): 667.6, DAP (Gy.cm2) : 58.7
Closure Device: Vascular band over the right radial artery, 15 cc of air
CONCLUSIONS
1. Successful percutaneous coronary artery intervention of a focal, hazy 80% in-stent restenosis in the distal RCA with a 3.0 x 18 mm Xience dave point drug-eluting stent, postdilated with a 3.0 x 15 mm NC balloon at 18 yanick with an excellent
angiographic result.
2. Non-obstructive coronary artery disease otherwise.
3. Elevated LVEDP at 18 mmHg
RECOMMENDATIONS
1. Wean radial band per protocol.
2. Dual antiplatelet therapy with daily baby aspirin and 10 mg of prasugrel along with high intensity statin, Zetia and antianginal medications as tolerated. Given her LDL is still significantly elevated despite multiple agents, strongly recommend
considering PCSK9 inhibitors in addition to current medications.
3. Aggressive management of cardiovascular risk factors.
4. Strongly encouraged complete smoking cessation.
5. Referral for outpatient cardiac rehab.
Copy to: Cunningham M.D., Adebayo Melendez M.D., Ellen Herrera, D.O.
Margi Alcocer MD, [facility], [facility]
[2024-02-11 11:42] LABS: Hematocrit 38.9 % (37.0-47.0); Hemoglobin 13.3 g/dL (12.0-16.0); Mean Corp Hgb Conc. 34.2 g/dL (33.0-37.0); Mean Corpuscular Hgb 28.7 pg (27.0-31.0); Mean Platelet Volume 9.8 fL (7.4-10.4); Platelet Count 275 10^3/uL (130-400); Red Blood Cell Count 4.63 10^6/uL (4.20-5.40); Red Cell Dist. Width 12.6 % (11.5-14.5); White Blood Cell Count 7.3 10^3/uL (4.8-10.8)
--- NOTE | 2024-02-11 11:52 | CM ---
CM following for DC planning needs.
Met w/patient at bedside to complete initial assessment.
Pt. resides w/ friend in a private, 3 story home. Functionally, patient is indep. w/ ADLs, mobility without the use of any assisted device.
Pt. has RX plan and uses [facility] in [place].
CM to follow for DC planning needs .
[2024-02-11 11:53] LABS: APTT 28.7 Sec (23.4-35.0)
--- NOTE | 2024-02-11 12:29 | PTCARENOTE ---
Unable to hang IV Heparin or give bolus prior to Pt going to laboratory animal caretaker, PTT result was pending. [employer]angelands conservation laborer RN was given report and came to poultry picker PT quickly. Meds have not been verified by pharmacy.
[2024-02-11] MEDS: EFFIENT 60 MG PO (12:45)
[2024-02-11 12:49] LABS: ACT-LR - POC 284 Seconds (116-155)
[2024-02-11 13:07] LABS: ACT-LR - POC 253 Seconds (116-155)
[2024-02-11 13:20] LABS: ACT-LR - POC 277 Seconds (116-155)
[2024-02-11 13:57] LABS: Glucose - Point of Care 135 mg/dl (70-99)
--- NOTE | 2024-02-11 14:44 | W.PN.HOSP.TC ---
Today's Communication/Plan
-
S/p PCI -
DAPT
Zetia, Statin
Assessment / Plan
Assessment / Plan
General: Conversant and Pain (3 out of 10 midsternal chest pressure); No Fever or Chills
HEENT: NormoCephalic, Anicteric, PERRLA, [place] Conjunctivae and No Ptosis; No Pharyngeal Efythema
Respiratory: Clear; No Wheezes, Rales or Rhonchi
Cardiac: Bradycardia (Sinus); No Murmur, Rub, Gallop or Peripheral Edema
Breast: Deferred by me
GI: Soft, Non Tender, Non Distended, Normal Bowel Sounds and No Hepatosplenomegaly
Rectal: Deferred by Provider
Genito-urinary: Deferred by me
Musculoskeletal: No Clubbing, No Cyanosis and No Edema
Skin: Warm and Dry; No Rash
Neuro: AO x 3, No Motor Deficits, Nonfocal/grossly intact, Cranial Nerves Intact and No Sensory Deficits; No Slurred Speech, Facial Droop or Tremors
Psych: Calm
#Unstable Angina
#CAD/OK x 6 stents( 4 dec 17 2021, 2 in end dec 2021) strong family hx
--high prob for ischemic event patient
-cardiac cath today
--Percutaneous coronary artery intervention of a focal, hazy 80% in-stent restenosis in the distal RCA
-Dual antiplatelet therapy with daily baby aspirin and 10 mg of prasugrel along with high intensity statin, Zetia and antianginal medications as tolerated.
-Ideally can start PCSK9 inhibitor as LDL not controlled
-Cardiac Rehab
-Smoking cessation
#Hypercalcemia
Calcium 11.0
Check PTH, vitamin D
#HTN-benign
-Continue lisinopril 40 mg daily, diltiazem 240 mg daily
#DM2
-Accu-Cheks with SSI
-HOLD glimepiride 4 mg daily
-Hga1c - 8.4 - will need titration outpatient
#Tobacco use
-cessation advised
DVT prophylaxis
sq heparin
Full code
Total time spent on today's encounter was 50 minutes which included time spent in counseling the patient/family regarding diagnosis and treatment plan as listed above, goals of care, and symptom management. Case was discussed with nursing staff,
specialists, and care coordinators/case management. All labs and imaging personally reviewed by me. Remainder the time spent in detailed review of previous records, lab data, imaging, and other medical provider documentation.
Anticipated Discharge: Within 24 hours
Subjective/Interval History
-
Date of Service: February 11, 2024
no acute events
Objective Data
-
Labs:
Laboratory Results
02/11/24 02/11/24 02/11/24
05:43 05:44 11:31
WBC 8.3 7.3
Hgb 12.9 13.3
Hct 39.2 38.9
Plt Count 247 D 275
APTT 28.7
Sodium 137
Potassium 4.0
Chloride 104
Carbon Dioxide 25
BUN 21 H
Creatinine 0.6
Glucose 149 H
Calcium 10.6 H
Total Bilirubin 0.3
AST 19
ALT 22
Alkaline Phosphatase 99
Vital Signs:
Vital Signs
Temp Pulse Resp BP Pulse Ox
98.3 F 47 16 114/73 96
02/11/24 07:00 02/11/24 14:00 02/11/24 07:00 02/11/24 13:53 02/11/24 07:53
Review of Systems
-
History Source: Patient
All other systems: Not reviewed unless documented
Data Reviewed
-
Medical Tests (Nuc Med, Echo etc): Image personally visualized and interpreted and Report Reviewed by me
Labs: Labs Reviewed by me
[2024-02-11] MEDS: NSS 1000 IV (16:31)
[2024-02-11 17:49] LABS: Glucose - Point of Care 214 mg/dl (70-99)
[2024-02-11] MEDS: NOVOLOG FLEXPEN-LOW RESISTANCE 2 UNITS SC (18:24)
--- NOTE | 2024-02-11 19:02 | PTCARENOTE ---
Pt c/o R wrist pain, R wrist slightly ecchymotic and swollen proximal to radial artery puncture site, site is soft but tender. Pt med with Tylenol 650 mg PO as ordered, awaiting relief.
[2024-02-11 21:38] LABS: Glucose - Point of Care 142 mg/dl (70-99)
[2024-02-11] MEDS: ROXICODONE 10 MG PO (21:44)
[2024-02-12 04:30] VITALS: BP 127/76
[2024-02-12 04:59] LABS: Hemoglobin 12.2 g/dL (12.0-16.0); Mean Corpuscular Hgb 28.7 pg (27.0-31.0); Mean Corpuscular Volume 87.1 fL (81.0-99.0); Mean Platelet Volume 9.8 fL (7.4-10.4); Platelet Count 235 10^3/uL (130-400); Red Blood Cell Count 4.25 10^6/uL (4.20-5.40); Red Cell Dist. Width 12.6 % (11.5-14.5); White Blood Cell Count 7.4 10^3/uL (4.8-10.8)
[2024-02-12 05:29] LABS: Blood Urea Nitrogen 18 mg/dl (7-17); Calcium 9.6 mg/dl (8.4-10.2); Carbon Dioxide 24 mmol/L (22-30); Chloride 106 mmol/L (98-107); Estimated Creatinine Clearance 111 ml/min; Glucose 137 mg/dl (70-99); HDL Cholesterol 38 mg/dl; LDL Cholesterol, Calculated 136 mg/dl; Potassium 4.1 mmol/L (3.5-5.1); Sodium 135 mmol/L (135-145); Total Cholesterol 243 mg/dl (50-199); Triglyceride 348 mg/dl (10-149); Very Low Density Lipoprotein 69 mg/dl (0-30); eGFR > 60.00
[2024-02-12] MEDS: ZESTRIL 40 MG PO (07:48)
[2024-02-12] MEDS: PROTONIX 40 MG PO (07:48)
[2024-02-12] MEDS: ZETIA 10 MG PO (07:48)
[2024-02-12] MEDS: LIPITOR 80 MG PO (07:48)
[2024-02-12] MEDS: ASPIR LOW (ENTERIC COATED) 81 MG PO (07:48)
[2024-02-12 07:53] VITALS: BP 132/69
[2024-02-12] MEDS: HEPARIN 5000 UNITS SC (07:58)
[2024-02-12 08:02] LABS: Glucose - Point of Care 127 mg/dl (70-99)
[2024-02-12] MEDS: NOVOLOG FLEXPEN-LOW RESISTANCE SC (08:05)
[2024-02-12] MEDS: EFFIENT 10 MG PO (08:34)
--- NOTE | 2024-02-12 09:09 | W.PN.CD ---
Today's Communication / Plan
-
- no cardiac contraindication to discharge
- MEDS: ASA 81, prasugrel 10 po qd (new), Zetia 10 po qd, lisinopril 40 qd. Stop diltiazem
- Follow up: Feb 18 Henna Enrique at 2:40 PM
Impression / Plan
-
ACS:
- DAPT
- Statin/Zetia
- stable post PCI
- cath site OK (muild tenderness improved, cap refill normal)
Dyslipidemia:
-not well-controlled
-LDL 161 despite atorvastatin and zetia
-PCSK9 inhibitor as OP
HTN:
-elevated overnight, now improved
-continue ACEI, dilt held with bradycardia- monitor HR and adjust if needed
Bradycardia - during sleep. Otherwise fine
DM -per primary
Smoker:
-quit a few days ago
-we discussed the importance of staying tobacco free
Dispo
- no cardiac contraindication to discharge
- MEDS: ASA 81, prasugrel 10 po qd (new), Zetia 10 po qd, lisinopril 40 qd. Stop diltiazem
- Follow up: Feb 18 Henna Enrique at 2:40 PM
- She needs PSCK9i as OP
- She needs to continue to stop smoking
- She needs FAUSTINO evaluation
Laboratory Data
02/12/24
04:38
Hgb 12.2
Creatinine 0.6
Generic Name Dose Route Start Last Admin
Trade Name Freq PRN Reason Stop Dose Admin
Aspirin 81 mg 02/11/24 08:00 02/12/24 07:48
Aspirin 81 Mg (Enteric Coated) Tablet PO 03/10/24 07:59 81 mg
DAILY DOMENICA
Atorvastatin Calcium 80 mg 02/11/24 08:00 02/12/24 07:48
Atorvastatin (Lipitor) 80 Mg Tablet PO 03/10/24 07:59 80 mg
DAILY DOMENICA
Diltiazem HCl 240 mg 02/11/24 08:00 02/12/24 08:05
Diltiazem 240 Mg Extended Release (24 H) Capsule PO 03/10/24 07:59 Not Given
DAILY DOMENICA
Ezetimibe 10 mg 02/11/24 08:00 02/12/24 07:48
Ezetimibe (Zetia) 10 Mg Tablet PO 03/10/24 07:59 10 mg
DAILY DOMENICA
Lisinopril 40 mg 02/11/24 08:00 02/12/24 07:48
Lisinopril 20 Mg Tablet PO 03/10/24 07:59 40 mg
DAILY DOMENICA
Prasugrel 10 mg 02/12/24 08:00 02/12/24 08:34
Prasugrel (Effient) 10 Mg Tablet PO 03/11/24 07:59 10 mg
DAILY DOMENICA
Physical Exam
Vital Signs/Labs
Vital Signs
Temp Pulse Resp BP Pulse Ox
36.8 C 47 14 132/69 99
02/12/24 07:57 02/12/24 08:05 02/12/24 07:57 02/12/24 07:53 02/12/24 07:57
02/11/24 02/12/24 02/13/24
06:59 06:59 06:59
Actual Weight 187 lb 9.814 oz
02/12/24 04:38
02/12/24 04:38
APTT 28.7 Sec (23.4-35.0) 02/11/24 11:31
Triglycerides 348 mg/dl (10-149) H 02/12/24 04:38
LDL Cholesterol, Calc 136 mg/dl 02/12/24 04:38
VLDL Cholesterol, Calc 69 mg/dl (0-30) H 02/12/24 04:38
HDL Cholesterol 38 mg/dl 02/12/24 04:38
LAB Results
02/10/24 02/11/24 02/11/24
19:55 01:07 05:43
Troponin I < 0.012 < 0.012 < 0.012
Physical Exam
Constitutional: No acute distress
EENT: Anicteric
Cardiovascular: Rhythm & rate is regular, JVD pressure is normal, Systolic murmur absent and Diastolic murmur absent
Respiratory: Respiratory effort normal, Lungs clear to auscul., Wheeze Absent and Crackles Absent
GI: Soft, Distention absent and Non tender
Neuro/Psych: Alert and Oriented
Other: Cath Site (above)
Data Reviewed
-
Date of Service: February 12, 2024
[2024-02-12 09:22] VITALS: BP 151/67
[2024-02-12 09:25] VITALS: BP 151/67; PULSE 53; O2SAT 100
[2024-02-12 09:32] VITALS: BP 151/67; PULSE 53; O2SAT 100
--- NOTE | 2024-02-12 10:20 | PTCARENOTE ---
AM dose of Diltiazem held due to Pt HR of 47, and as per parameters.
[2024-02-12 11:21] VITALS: BP 134/68
[2024-02-12 12:16] LABS: Glucose - Point of Care 155 mg/dl (70-99)
--- NOTE | 2024-02-12 12:17 | W.PN.HOSP.TC ---
Addendum entered and electronically signed by Guido Alberto MD 02/12/24 15:37:
[id number]
Original Note:
Today's Communication/Plan
-
Aspirin, prasugrel
Zetia, Lisinopril
Stop Dilt due to bradycardia during sleeping
Sleep study outpatient
PCSK9 inhibitor as outpatient
f/u pcp, cards outpatient
Assessment / Plan
Assessment / Plan
General: Conversant and Pain (3 out of 10 midsternal chest pressure); No Fever or Chills
HEENT: NormoCephalic, Anicteric, PERRLA, [place] Conjunctivae and No Ptosis; No Pharyngeal Efythema
Respiratory: Clear; No Wheezes, Rales or Rhonchi
Cardiac: Bradycardia (Sinus); No Murmur, Rub, Gallop or Peripheral Edema
Breast: Deferred by me
GI: Soft, Non Tender, Non Distended, Normal Bowel Sounds and No Hepatosplenomegaly
Rectal: Deferred by Provider
Genito-urinary: Deferred by me
Musculoskeletal: No Clubbing, No Cyanosis and No Edema
Skin: Warm and Dry; No Rash
Neuro: AO x 3, No Motor Deficits, Nonfocal/grossly intact, Cranial Nerves Intact and No Sensory Deficits; No Slurred Speech, Facial Droop or Tremors
Psych: Calm
#Unstable Angina
#CAD/PR x 6 stents( 4 dec 17 2021, 2 in end dec 2021) strong family hx
--high prob for ischemic event patient
-cardiac cath today
--Percutaneous coronary artery intervention of a focal, hazy 80% in-stent restenosis in the distal RCA
-Dual antiplatelet therapy with daily baby aspirin and 10 mg of prasugrel along with high intensity statin, Zetia and antianginal medications as tolerated.
-Ideally can start PCSK9 inhibitor as LDL not controlled; Start outpatient
-Cardiac Rehab
-Smoking cessation
-Follow up: Feb 18 Henna Enrique at 2:40 PM
#Bradycardia
-during sleep
-Stop dilt
-Sleep study outpatient
#HTN-benign
-Continue lisinopril 40 mg daily,
#DM2
-Accu-Cheks with SSI
-glimepiride 4 mg daily
-Hga1c - 8.4 - will need titration outpatient
#Tobacco use
-cessation advised
DVT prophylaxis
sq heparin
Full code
More than 30 minutes spent in discharge including
Final examination of the patient
Summarizing hospital stay
Instructions for continuing care to all relevant caregivers
Preparation of discharge records, prescriptions, and referral forms
Total time spent (35 in minutes):
Anticipated Discharge: Today
Subjective/Interval History
-
Date of Service: February 12, 2024
no acute events
Objective Data
-
Labs:
Laboratory Results
02/12/24
04:38
WBC 7.4
Hgb 12.2
Hct 37.0
Plt Count 235
Sodium 135
Potassium 4.1
Chloride 106
Carbon Dioxide 24
BUN 18 H
Creatinine 0.6
Glucose 137 H
Calcium 9.6
Vital Signs:
Vital Signs
Temp Pulse Resp BP Pulse Ox
98.4 F 52 20 151/67 98
02/12/24 11:19 02/12/24 10:00 02/12/24 11:19 02/12/24 09:22 02/12/24 11:19
I&O
02/11/24 02/12/24 02/13/24
06:59 06:59 06:59
Intake Total 1320 / 1320
Balance 1320 / 1320
Review of Systems
-
History Source: Patient
All other systems: Not reviewed unless documented
Data Reviewed
-
Medical Tests (Nuc Med, Echo etc): Image personally visualized and interpreted and Report Reviewed by me
Labs: Labs Reviewed by me
[2024-02-12] MEDS: NOVOLOG FLEXPEN-LOW RESISTANCE 1 UNITS SC (12:18)
--- NOTE | 2024-02-12 12:21 | W.DS.TRANS ---
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
-
Discharge Instructions:
Discharge Diagnosis/Procedures Angioplasty and stent to Right Coronary artery
Diet Low Cholesterol,Low Fat,Diabetic, Carb
Controlled
Activity As tolerated
Other Services Cardiac Rehab
Instructions:
Stand-Alone Forms: DC Instructions- Cath/EP Lab
Changes to Home Medications: Yes
Discharge Medications:
DC Medications w/original date entered in [employer]
aspirin 81 mg tablet,delayed release 81 mg PO DAILY Blood clot prevention/tx 12/17/21
atorvastatin 80 mg tablet 80 mg PO DAILY High Cholesterol 02/10/24
ezetimibe 10 mg tablet 10 mg PO DAILY High Cholesterol 02/10/24
glimepiride 4 mg tablet 4 mg PO DAILY Diabetes 02/10/24
lisinopril 40 mg tablet 40 mg PO DAILY Blood Pressure 02/10/24
prasugrel 10 mg tablet 10 mg PO DAILY #30 tabs 02/12/24
Home Medication Changes
prasugrel 10 mg tablet 10 mg PO DAILY #30 tabs 02/12/24
Stop diltiazem
Pending Results: No
--- NOTE | 2024-02-12 12:27 | CM ---
CM following for DC planning needs.
Pt. is for DC to home today. Pt. will DC on Effient. Call to pharmacy-not in stock. RX sent to pharmacy, will be available tomorrow. Call to patient's Rx plan, estimated cost is Effient is $10/mo.
I updated patient on this.
Plan is for DC to home today, no needs identified.
== END 2024-02-12 13:20 | disposition home or self-care (01) | DRG 322 ==
LOC: IVU 11:17
PROVIDERS: Clinical Nurse Specialist Family Health; Internal Medicine Interventional Cardiology; Nurse Practitioner; ADMITTING PHYSICIAN Hospitalist; ATTENDING PHYSICIAN Internal Medicine; EMERGENCY PHYSICIAN Emergency Medicine; FAMILY PHYSICIAN Physician Assistant Medical; OTHER PHYSICIAN Internal Medicine Cardiovascular Disease
PROC: 02703DZ Dilation of Coronary Artery, One Artery with Intraluminal Device, Percutaneous Approach (ICD-10-PCS; 2024-02-11)
PROC: B2111ZZ Fluoroscopy of Multiple Coronary Arteries using Low Osmolar Contrast (ICD-10-PCS; 2024-02-11)
PROC: 4A023N7 Measurement of Cardiac Sampling and Pressure, Left Heart, Percutaneous Approach (ICD-10-PCS; 2024-02-11)
DX: T82.855A Stenosis of coronary artery stent, initial encounter (principal); I25.110 Atherosclerotic heart disease of native coronary artery with unstable angina pectoris; E11.65 Type 2 diabetes mellitus with hyperglycemia; E83.52 Hypercalcemia; F41.9 Anxiety disorder, unspecified; E78.00 Pure hypercholesterolemia, unspecified; F17.200 Nicotine dependence, unspecified, uncomplicated; G89.29 Other chronic pain; G47.33 Obstructive sleep apnea (adult) (pediatric); E66.01 Morbid (severe) obesity due to excess calories; M25.512 Pain in left shoulder; I10 Essential (primary) hypertension; Y83.1 Surgical operation with implant of artificial internal device as the cause of abnormal reaction of the patient, or of later complication, without mention of misadventure at the time of the procedure; Y92.9 Unspecified place or not applicable; I25.2 Old myocardial infarction; Z79.82 Long term (current) use of aspirin; Z79.84 Long term (current) use of oral hypoglycemic drugs; Z87.442 Personal history of urinary calculi; Z82.49 Family history of ischemic heart disease and other diseases of the circulatory system; Z88.1 Allergy status to other antibiotic agents; Z88.8 Allergy status to other drugs, medicaments and biological substances; Z68.32 Body mass index [BMI] 32.0-32.9, adult
CPT/HCPCS: 76937; 80048; 80053; 80061; 82306; 82962; 83036; 83970; 84484; 85025; 85027; 85347; 85730; 93005; 93306; 93458; 97162; 97165; 99152; 99153; 99285; C1725; C1769; C1874; C1894; C9600; Q9967

== ENCOUNTER 2024-03-30 08:51 | Outpatient (RCR) | payer OTHER, SELFPAY ==
[2024-03-11 14:31] LABS: Glucose - Point of Care 137 mg/dl (70-99)
[2024-03-11 15:08] LABS: Glucose - Point of Care 112 mg/dl (70-99)
[2024-03-23 08:45] LABS: Glucose - Point of Care 176 mg/dl (70-99)
[2024-03-23 09:28] LABS: Glucose - Point of Care 172 mg/dl (70-99)
[2024-03-26 08:33] LABS: Glucose - Point of Care 155 mg/dl (70-99)
[2024-03-26 09:22] LABS: Glucose - Point of Care 141 mg/dl (70-99)
[2024-03-30 08:29] LABS: Glucose - Point of Care 141 mg/dl (70-99)
[2024-03-30 09:30] LABS: Glucose - Point of Care 117 mg/dl (70-99)
== END 2024-03-30 23:59 | disposition home or self-care (01) ==
LOC: CRHB 08:51
PROVIDERS: ATTENDING PHYSICIAN Internal Medicine Cardiovascular Disease
DX: I25.10 Atherosclerotic heart disease of native coronary artery without angina pectoris (principal); Z95.5 Presence of coronary angioplasty implant and graft
CPT/HCPCS: 82962; 93797; 93798

== ENCOUNTER → 2024-08-26 16:54 | Outpatient (REF) | payer OTHER, SELFPAY | LOC: PAVMRI 16:54 | PROVIDERS: ATTENDING PHYSICIAN Physician Assistant Medical | DX: M25.512 Pain in left shoulder (principal); G89.29 Other chronic pain | CPT/HCPCS: 73221 ==

== ENCOUNTER 2024-09-29 17:16 | Emergency (ER) | payer OTHER, SELFPAY ==
[2024-09-29 17:18] VITALS: BP 204/94
[2024-09-29 17:23] VITALS: BP 179/92
[2024-09-29 18:00] LABS: ALT (SGPT) 24 U/L (0-35); AST (SGOT) 19 U/L (14-36); Albumin 4.2 g/dl (3.5-5.0); Alkaline Phosphatase 91 U/L (38-126); Blood Urea Nitrogen 18 mg/dl (7-17); Calcium 10.3 mg/dl (8.4-10.2); Carbon Dioxide 26 mmol/L (22-30); Chloride 105 mmol/L (98-107); Glucose 213 mg/dl (70-99); Sodium 142 mmol/L (135-145); Total Bilirubin 0.3 mg/dl (0.2-1.3); Total Protein 6.5 g/dl (6.3-8.2); eGFR > 60.00
[2024-09-29 18:02] LABS: Troponin I < 0.012 ng/ml
[2024-09-29 18:06] LABS: % Basophils 0.5 % (0-2); % Eosinophils 1.5 % (0-6); % Immature Granulocytes 0.1 % (0-0.5); % Lymphocytes 55.8 % (20.5-51.1); % Monocytes 7.3 % (1.7-9.3); % Neutrophils 34.8 % (42.2-75.2); Absolute Eosinophils 0.1 10^3/uL (0-0.7); Absolute Lymphocytes 4.1 10^3/uL (1.2-3.4); Absolute Monocytes 0.5 10^3/uL (0.1-0.6); Absolute Neutrophils 2.6 10^3/uL (1.4-6.5); Hematocrit 39.9 % (37.0-47.0); Hemoglobin 13.5 g/dL (12.0-16.0); Mean Corp Hgb Conc. 33.8 g/dL (33.0-37.0); Mean Corpuscular Hgb 29.4 pg (27.0-31.0); Mean Corpuscular Volume 86.9 fL (81.0-99.0); Mean Platelet Volume 9.9 fL (7.4-10.4); Nucleated Red Blood Cells % 0 %; Platelet Count 249 10^3/uL (130-400); Red Blood Cell Count 4.59 10^6/uL (4.20-5.40); Red Cell Dist. Width 12.6 % (11.5-14.5); White Blood Cell Count 7.4 10^3/uL (4.8-10.8)
--- NOTE | 2024-09-29 19:29 | EDRN ---
Pt unable to be located in waiting arena, ER, ER parking lot.
== END 2024-09-29 19:30 ==
LOC: EMR 17:16
PROVIDERS: Emergency Medicine; EMERGENCY PHYSICIAN Emergency Medicine
DX: M79.602 Pain in left arm (principal); R42 Dizziness and giddiness; Z53.21 Procedure and treatment not carried out due to patient leaving prior to being seen by health care provider; R11.0 Nausea; Z95.5 Presence of coronary angioplasty implant and graft
CPT/HCPCS: 80053; 84484; 85025; 93005

== ENCOUNTER → 2025-01-06 13:08 | Outpatient (REF) | payer OTHER, SELFPAY | LOC: DHSLP 13:08 | PROVIDERS: ATTENDING PHYSICIAN Internal Medicine | DX: G47.33 Obstructive sleep apnea (adult) (pediatric) (principal) | CPT/HCPCS: 95800 ==

== ENCOUNTER → 2025-03-02 13:08 | Outpatient (REF) | payer OTHER, SELFPAY | LOC: RCS 13:08 | PROVIDERS: ATTENDING PHYSICIAN Internal Medicine Cardiovascular Disease; FAMILY PHYSICIAN Physician Assistant Medical | DX: I25.10 Atherosclerotic heart disease of native coronary artery without angina pectoris (principal) | CPT/HCPCS: 93306 ==

== ENCOUNTER → 2025-03-10 08:45 | Outpatient (REF) | payer OTHER, SELFPAY | LOC: HWRAD 08:45 | PROVIDERS: ATTENDING PHYSICIAN Nurse Practitioner Family; FAMILY PHYSICIAN Physician Assistant Medical | DX: F17.210 Nicotine dependence, cigarettes, uncomplicated (principal) | CPT/HCPCS: 71271 ==

== ENCOUNTER 2025-06-21 09:38 | Inpatient (IN) | payer OTHER, SELFPAY ==
[2025-06-18] VITALS (13 sets, daily range): BP systolic 108–164; BP diastolic 50–99; BMI 30.9; BMI 30.4
--- NOTE | 2025-06-18 10:47 | ED.GENMED ---
History of Present Illness
<Ed Seals PA-C - Last Filed: 06/18/25 14:13>
General
Chief Complaint: Chest Pain
Source: patient
Exam Limitations: none
Time Seen by Provider: 06/18/25 10:28
History of Present Illness
History of Present Illness:
60-year-old female with history of significant cardiac disease with multiple stents as well as history of passing multiple kidney stones. She presents complaining of hematuria intermittently over the past 3 weeks of which she typically notes is
related to passing a kidney stone. Every now and then she notes a twinge over the left kidney associated with this. She also notes a heartburn sensation in the center lower chest with nausea lightheadedness and pain between her shoulder blades.
The pain between her shoulder blades is new. There is no fever or cough. She denies shortness of breath. She is on prasugrel. Heartburn sensation does remind her of prior cardiac events.
Past History
<Ed Seals PA-C - Last Filed: 06/18/25 14:13>
Past History
ED Past Medical History: CAD, HTN, Hypercholesterolemia, NIDDM, AR, Valvular disease and Other
ED Past Surgical History: Appendectomy, Cardiac (Multiple cardiac stents) and Gynecological ( section)
Patient has exhibited threatening behavior?: No
Social History
Tobacco: Smoker
Alcohol: Occasional
Drug: None
Personal:
Living: with family
Employment: Employed
Family History
Family History: Other (reviewed and non-contributory)
Phy Exam
<Ed Seals PA-C - Last Filed: 06/18/25 14:13>
Physical Exam
Physical Exam:
General: Well-appearing slightly anxious female no acute respiratory distress
Heart: RRR,
Lungs: CTA
Abd: soft, nontender
Ext: no cyanosis
MSK: No reproducible tenderness to the back
Scores
<Ed Seals PA-C - Last Filed: 06/18/25 14:13>
Heart Score for Chest Pain Patients
STEMI patient?: No
History: Moderately Suspicious
ECG: Normal
Age: >45 - <65 years
Risk Factors: >/= 3 Risk Factors or History of CAD
Troponin: </= Normal Limit
Heart Score for Chest Pain Patients: 4
Heart Score Risk: 20.3% MACE over next 6 weeks
Course
<Ed Seals PA-C - Last Filed: 06/18/25 14:13>
Orders/Labs/Results
Orders:
Orders
06/18/25 09:38
EKG [Electrocardiogram (*1)] Urgent
Reason for Study: Chest Pain
EKG- Treatment ONCE
06/18/25 10:56
CT Chest/abd/pelvis Angio W/wo Urgent
Comment:
Reason For Exam: shoulder blade pain, lightheaded, chest pain
06/18/25 10:57
Complete Blood Count/With Diff Urgent
Comprehensive Metabolic Panel Urgent
Troponin I Urgent
Urinalysis Reflex To Culture Urgent
Date Specimen was Collected: 06/18/25
Time Specimen was Collected: 10:48
Urine Microscopic Reflex Cult Urgent
Urine Culture Urgent
DARCI Source: U
Specimen Description:
Date Specimen was Collected: 06/18/25
Time Specimen was Collected: 10:48
06/18/25 13:57
0.9% Sodium Chloride 1000 ml [Nss] 1,000 ml IV BOLUS
06/18/25 14:01
Troponin I Urgent
06/18/25 14:06
Piperacillin/Tazo 3.375 Gram [Zosyn] 3.375 gram in 50 ml IV NOW
Abnormal Lab Results
06/18/25
10:57
Absolute Lymphs (auto) 3.5 H 10^3/uL
(1.2-3.4)
Absolute Monos (auto) 0.7 H 10^3/uL
(0.1-0.6)
Neutrophils % 40.3 L %
(42.2-75.2)
Chloride 109 H mmol/L
(98-107)
Glucose 110 H mg/dl
(70-99)
Calcium 10.6 H mg/dl
(8.4-10.2)
Ur Occult Blood Reflex 4+ A
(Negative)
Leukocyte Esterase Rfl 2+ A
(Negative)
Urine RBC 80-90 A /HPF
(0-2)
Urine Bacteria (Reflex) Moderate A
(Negative)
Urine Glucose 4+ A
(Negative)
Urine Albumin (Reflex) 3+ A
(Neg - Trace)
06/18/25 10:57
06/18/25 10:57
Vital Signs
Initial and Last Documented VS:
Initial Vital Signs
Temp Pulse Resp BP Pulse Ox
98.6 F 66 16 161/99 98
06/18/25 09:35 06/18/25 09:35 06/18/25 09:35 06/18/25 09:35 06/18/25 09:35
Last Documented Vital Signs
Temp Pulse Resp BP Pulse Ox
97.6 F 50 18 112/65 98
06/18/25 11:00 06/18/25 13:45 06/18/25 13:45 06/18/25 13:18 06/18/25 13:45
<Agusto Vuong MD - Last Filed: 06/18/25 11:43>
Orders/Labs/Results
Orders:
Orders
06/18/25 09:38
EKG [Electrocardiogram (*1)] Urgent
Reason for Study: Chest Pain
EKG- Treatment ONCE
06/18/25 10:56
CT Chest/abd/pelvis Angio W/wo Urgent
Comment:
Reason For Exam: shoulder blade pain, lightheaded, chest pain
06/18/25 10:57
Complete Blood Count/With Diff Urgent
Comprehensive Metabolic Panel Urgent
Troponin I Urgent
Urinalysis Reflex To Culture Urgent
Date Specimen was Collected: 06/18/25
Time Specimen was Collected: 10:48
Urine Microscopic Reflex Cult Urgent
Urine Culture Urgent
DARCI Source: U
Specimen Description:
Date Specimen was Collected: 06/18/25
Time Specimen was Collected: 10:48
06/18/25 13:57
0.9% Sodium Chloride 1000 ml [Nss] 1,000 ml IV BOLUS
06/18/25 14:01
Troponin I Urgent
06/18/25 14:06
Piperacillin/Tazo 3.375 Gram [Zosyn] 3.375 gram in 50 ml IV NOW
Abnormal Lab Results
06/18/25
10:57
Absolute Lymphs (auto) 3.5 H 10^3/uL
(1.2-3.4)
Absolute Monos (auto) 0.7 H 10^3/uL
(0.1-0.6)
Neutrophils % 40.3 L %
(42.2-75.2)
Chloride 109 H mmol/L
(98-107)
Glucose 110 H mg/dl
(70-99)
Calcium 10.6 H mg/dl
(8.4-10.2)
Ur Occult Blood Reflex 4+ A
(Negative)
Leukocyte Esterase Rfl 2+ A
(Negative)
Urine RBC 80-90 A /HPF
(0-2)
Urine Bacteria (Reflex) Moderate A
(Negative)
Urine Glucose 4+ A
(Negative)
Urine Albumin (Reflex) 3+ A
(Neg - Trace)
06/18/25 10:57
06/18/25 10:57
Vital Signs
Initial and Last Documented VS:
Initial Vital Signs
Temp Pulse Resp BP Pulse Ox
98.6 F 66 16 161/99 98
06/18/25 09:35 06/18/25 09:35 06/18/25 09:35 06/18/25 09:35 06/18/25 09:35
Last Documented Vital Signs
Temp Pulse Resp BP Pulse Ox
97.6 F 50 18 112/65 98
06/18/25 11:00 06/18/25 13:45 06/18/25 13:45 06/18/25 13:18 06/18/25 13:45
<Ed Seals PA-C - Last Filed: 06/18/25 14:13>
MDM/Problems Addressed
Differential Diagnosis Includes:
Patient with multiple symptoms but significant history of cardiac disease. Heartburn consistent with prior cardiac events. Will obtain EKG troponin. But she also has hematuria consistent with prior history of kidney stones. Will order kidney
stone study of the abdomen. But given her shoulder blade plain and lightheadedness we will also order CT angio chest abdomen dissection.
<Ed Seals PA-C - Last Filed: 06/18/25 14:13>
*Pulse Oximetry
SaO2: 99
Oxygen Mode of Delivery: Room air
Patient hypoxic: no
*Critical Care Note
Total Time (30-74mins, 75-104mins- exclusive of procedures): Not Applicable
<Ed Seals PA-C - Last Filed: 06/18/25 14:13>
Update Note
Update Note:
CT angio of the chest is without dissection or acute cardiopulmonary finding. CT of the abdomen does demonstrate stable right renal pelvis stone. There is no hydronephrosis however there is significant perinephric stranding to suggest infection
perhaps pyelitis. Urinalysis consistent with UTI. Initial troponin is not undetectable but still normal at 0.033. Given chest discomfort similar to prior cardiac events and potential kidney infection will admit to hospital. Repeat troponin is
pending. Zosyn ordered. She has a documented allergy to cephalosporins but cannot take penicillins.
ED Attending Note
<Ed Seals PA-C - Last Filed: 06/18/25 14:13>
-
Portions of this chart may have been created with voice recognition software.� Occasional wrong word or��sound alike� substitutions may have occurred due to the inherent limitations of voice recognition software.
<Agusto Vuong MD - Last Filed: 06/18/25 11:43>
ED Attending Note
Patient seen and examined by attending physician: Yes
I performed the substantive portion of visit, reviewed & personally made and approve the management plan that is documented in note by myself or ELIO.: Yes
ED Attending Note:
60-year-old female with multiple issues. Issue #1 was hematuria or [place] colored urine for 3 weeks. Vague mild discomfort. History of kidney stones. No dysuria or frequency. In addition she has had episodes of near syncope recurrent for
months. Her professional nursing assistant, per the patient has not noted any significance for this. Finally this morning she had chest discomfort radiating to both shoulders.
On exam patient is nontoxic in no distress. Warm and dry. Perfusing well. Lungs are clear and equal. Heart regular rate and rhythm no murmur. Abdomen soft and nontender. She is warm and dry and perfusing well.
Impression #1 is possible kidney stone. Urine pending CT of the abdomen and pelvis pending. Cardiac testing pending. Concern with multiple stents. She is describing multiple near syncopal episodes of uncertain etiology although the episode in
the room had a normal sinus rhythm. With patient's significant cardiac history chest discomfort rating to the shoulders multiple episodes of near syncope she will be observed from a cardiac standpoint overnight. Also rule out dissection with a CTA
Discharge Plan
Departure
Patient Disposition: Admit
Date of Disposition: 06/18/25
Time of Disposition: 14:12
Presentation/result/management discussed w/ accepting MD/DO: Hospitalist
Discharge Problem:
Chest pain, Pyelonephritis
Prescriptions:
No Action
aspirin 81 MG tablet,delayed release (DR/EC)
81 mg PO DAILY
glimepiride 4 mg tablet
4 mg PO DAILY
lisinopril 40 mg tablet
40 mg PO DAILY
ezetimibe 10 mg tablet
10 mg PO DAILY
atorvastatin 80 MG tablet
80 mg PO DAILY
prasugrel HCl 10 mg Tablet
10 mg PO DAILY Qty: 30 11RF
Referrals:
Nick Franco MD [Family Provider, Family Practice]
Interventions
Interventions:
*Risk Screen - Suicide Last Done: 06/18/25 09:35
*General Assessment Last Done: 06/18/25 11:00
*Neglect/Abuse Screening Last Done: 06/18/25 09:35
*ED- Fall Risk Assessment Last Done: 06/18/25 11:00
*ED COVID-19 Vaccine History Last Done: 06/18/25 11:00
ED- Cardiac Assessment Last Done: 06/18/25 11:00
Discharge Date and Time
Print Language: GREENLANDIC
[2025-06-18 11:08] LABS: Hematocrit 42.1 % (37.0-47.0); Hemoglobin 14.0 g/dL (12.0-16.0); Mean Corp Hgb Conc. 33.3 g/dL (33.0-37.0); Mean Corpuscular Volume 85.1 fL (81.0-99.0); Nucleated Red Blood Cells % 0 %; Platelet Count 260 10^3/uL (130-400); Red Cell Dist. Width 12.7 % (11.5-14.5)
[2025-06-18 11:25] LABS: ALT (SGPT) 22 U/L (0-35); AST (SGOT) 20 U/L (14-36); Albumin 4.3 g/dl (3.5-5.0); Alkaline Phosphatase 90 U/L (38-126); Blood Urea Nitrogen 17 mg/dl (7-17); Calcium 10.6 mg/dl (8.4-10.2); Carbon Dioxide 25 mmol/L (22-30); Chloride 109 mmol/L (98-107); Estimated Creatinine Clearance 106 ml/min; Glucose 110 mg/dl (70-99); Potassium 4.4 mmol/L (3.5-5.1); Sodium 139 mmol/L (135-145); Total Protein 6.7 g/dl (6.3-8.2); eGFR > 60.00
[2025-06-18 11:37] LABS: Troponin I 0.033 ng/ml
[2025-06-18 11:44] LABS: Urine Character Cloudy (Clear)
[2025-06-18 12:03] LABS: Urine Red Blood Cell 80-90 /HPF (0-2); Urine White Cell 0-2 /HPF (0-5)
[2025-06-18] MEDS: NSS 1000 IV (14:01)
--- NOTE | 2025-06-18 14:13 | HPS.HSE ---
Family Physician
-
Family Physician: Nick Franco
Chief Complaint
-
Chest discomfort
History of Present Illness
60F HTN HLD NIDDM CAD multiple stents on DAPT Kidney Stones Tobacco Dependence p/w hematuria intermittently over the past 3 weeks of which she typically notes is related to passing kidney stone. Pt also notes intermittent heartburn sensation in the
center lower chest with nausea lightheadedness and pain between her shoulder blades. VSS. Labs noted mild persistent elevation Calcium. Troponin also noted elevated 0.033 0.031 from prior <0.012 but still within normal range. EKG also notes no
acute changes from prior. CT chest/abd/pelvis neg for aneurysm/dissection/pulmonary embolism. Noted chronic 1.5 cm calculus rt renal pelvis non-obstructing. Also noted signs of right sided pyelonephritis. Denies dysuria. Reports chronic
constipation. Denies fever chills. Pain between shoulder blades, heartburn, since resolved while in ED. Urine clear at this time.
Medical History
Past Medical History
Past Medical History: Reports Other (as above)
Past Surgical History: Reports Other (as above)
Social History
Tobacco: Smoker
Alcohol: Occasional
Drug: None
Personal:
Living: With Family
Employment: Employed
Family History
Family History: Not pertinent (reviewed)
Allergies / Home Medications
Allergies reflects when Allergies were last updated in [employer].
Home Medications with original date entered in [employer]
Allergy/Medication List:
Allergies
Allergy/AdvReac Type Severity Reaction Status Date / Time
adhesive Allergy Intermediate Rash Verified 06/18/25 09:34
cefuroxime axetil (From Allergy Swelling Verified 06/18/25 09:34
Ceftin)
Cephalosporins Allergy Swelling Verified 06/18/25 09:34
Home Medications
aspirin 81 mg tablet,delayed release 81 mg PO DAILY Blood clot prevention/tx 02/14/22
atorvastatin 80 mg tablet 80 mg PO DAILY High Cholesterol 02/10/24
ezetimibe 10 mg tablet 10 mg PO DAILY High Cholesterol 02/10/24
glimepiride 4 mg tablet 4 mg PO DAILY Diabetes 02/10/24
lisinopril 40 mg tablet 40 mg PO DAILY Blood Pressure 02/10/24
prasugrel HCl 10 mg tablet 10 mg PO DAILY #30 tabs 02/12/24
acetaminophen 500 mg tablet 1,000 mg PO DAILYPRN PRN mild pain 06/18/25
empagliflozin 10 mg tablet (Jardiance) 10 mg PO DAILY 06/18/25
evolocumab 140 mg/mL subcutaneous pen injector (Repatha SureClick) 140 mg SC Q2W 06/18/25
krill oil 500 mg capsule 1,000 mg PO DAILY 06/18/25
lorazepam 0.5 mg tablet 0.5 mg PO BIDPRN PRN anxiety 06/18/25
varenicline tartrate 0.5 mg tablet 0.5 mg PO DAILY 06/18/25
Review of Systems
-
A 12 point ROS was completed and negative except as noted: Yes
Constitutional: Reports Other (as below)
Physical Exam
Vital Signs
Vital Signs
Temp Pulse Resp BP Pulse Ox
97.6 F 50 18 112/65 98
06/18/25 11:00 06/18/25 13:45 06/18/25 13:45 06/18/25 13:18 06/18/25 13:45
Physical Exam
General: Other (as below)
Laboratory Results
-
06/18/25 10:57
06/18/25 10:57
Laboratory Results
Total Bilirubin 0.7 mg/dl (0.2-1.3) 06/18/25 10:57
AST 20 U/L (14-36) 06/18/25 10:57
ALT 22 U/L (0-35) 06/18/25 10:57
Alkaline Phosphatase 90 U/L (38-126) 06/18/25 10:57
Troponin I 0.033 ng/ml 06/18/25 10:57
Impression/Plan
-
ROS
General: Denies fever chills night sweats unexpected weight loss
Neuro: Denies seizure shaking loss of consciousness dizziness vertigo
Psych: denies depression hallucinations confusion manic episodes
Endocrine: Denies polyuria polydipsia polyphagia heat/cold intolerance
HEENT: Denies blindness visual disturbances epistaxis
Pulmonary: denies coughing hemoptysis sneezing sob dyspnea on exertion
Cardiovascular: denies palpitations leg swelling reports intermittent pain btwn her shoulder blades
Hematology: denies signs symptoms of anemia easy bruising/bleeding
Gastrointestinal: reports heartburn denies nausea vomiting diarrhea constipation hematemesis hematochezia melena
Genito-Urinary: denies retention incontinence dysuria reports intermittent hematuria
Musculoskeletal: denies joint pain weakness
Dermatology: denies rash laceration bruising
Physical Exam
General: No pallor, cyanosis, or jaundice. Ambulatory without need for assist device
HEENT: Throat clear. PERRLA Normocephalic atraumatic
NECK: Supple. No JVD Carotid Bruits
RESPIRATORY: Lungs clear to auscultation. No crackles wheezes stridor
CVS: S1, S2 normal. RRR. No murmur, rub or gallop.
ABDOMEN: Soft, non-tender. No distension. BS+/normal.
EXTREMITIES: No peripheral cyanosis or edema.
ANDROID PROGRAMMER: AOx3 conversant coherent
IMPRESSION:
60F HTN HLD NIDDM CAD multiple stents on DAPT Kidney Stones Tobacco Dependence p/w hematuria intermittently over the past 3 weeks of which she typically notes is related to passing kidney stone. Pt also notes intermittent heartburn sensation in the
center lower chest with nausea lightheadedness and pain between her shoulder blades. VSS. Labs noted mild persistent elevation Calcium over the course of multiple stays since 2021. Troponin also noted elevated 0.033 0.031 from prior <0.012 but
still within normal range. EKG also notes no acute changes from prior. CT chest/abd/pelvis neg for aneurysm/dissection/pulmonary embolism. Noted chronic 1.5 cm calculus rt renal pelvis non-obstructing. Also noted signs of right sided
pyelonephritis. Denies dysuria. Reports chronic constipation. Denies fever chills. Pain between shoulder blades, heartburn, since resolved while in ED. Urine clear at this time.
PLAN:
#Possible Atypical Chest pain
#CAD w/ multiple stents
#Possible GERD
Tele observation
Troponin 0.33 0.31 check 3rd trop
chest symptoms (heartburn, pain btwn shoulder blades) seem resolved at this time
No acute EKG changes noted
Cont home DAPT ASAS Prasugrel
Protonix 20 mg daily started, maalox prn Heartburn
#Possible Right Pyelonephritis as noted on CT
#Possible complicated UTI, urinalysis seems to corroborate
cont zosyn for now, (patient hx cephalosporin allergy, reports tolerating Augmentin before but also says Augmentin does nothing for her)
follow urine culture
#Mild Persistent Hypercalcemia
Check Vit D and PTH in AM
IVF gentle hydration
#HTN
cont home lisinopril w/ holding parameters
#HLD
cont home ezetimibe atorvastatin
#NIDDM
check A1c with AM labs
low dose sliding scale
cont glimepiride Jardiance (or hospital equivalent [facility])
#Constipation
Laxatives prn
#Anxiety
Cont home ativan prn
#Tobacco Dependence
cont home chantix
declined nicotine supplementation
Cholesteral lowering 2g NA carb controlled diet
DVT ppx SCDs
Full Code
I spent a total of 80 minutes with the patient or on the floor. More than 50% of this time involved counseling and coordination of care.
[2025-06-18 14:43] LABS: Troponin I 0.031 ng/ml
--- NOTE | 2025-06-18 18:09 | EDRN ---
this RN called the receiving unit and notified them that paper report was going to be tubed up
[2025-06-18] MEDS: ZOSYN 50 IV (18:14)
[2025-06-18] MEDS: ATIVAN 0.5 MG PO (19:26)
[2025-06-18] MEDS: LR 1000 IV (19:47)
[2025-06-18 19:55] LABS: Troponin I 0.027 ng/ml
--- NOTE | 2025-06-18 20:00 | PTCARENOTE ---
Patient arrived from ED, AAO x 3, anxious. PRN Ativan administered. VSS. Patient denies pain. IV fluids initiated, per orders. OOB independently. No alarms in place due to low risk of falls. Skin check completed. Skin with no open wounds, CDI.
Patient oriented to room. Bed in lowest positon. Call chase and personal belongings within reach.
[2025-06-18] MEDS: PROTONIX 20 MG PO (20:40)
[2025-06-18 21:14] LABS: Glucose - Point of Care 165 mg/dl (70-99)
[2025-06-19] MEDS: ZOSYN 50 IV ×5 (00:53→23:13)
[2025-06-19] MEDS: TYLENOL 1000 MG PO (03:46)
[2025-06-19] MEDS: TORADOL 15 MG IV (05:38)
[2025-06-19 06:25] VITALS: BP 108/72
[2025-06-19] MEDS: PROTONIX IV 20 MG IV (06:35)
--- NOTE | 2025-06-19 06:38 | PTCARENOTE ---
0621: Patient complaining of chest pressure/heaviness. Patient denying SOB. Patient stating pain in chest 05/12. Vital signs obtained. BP 108/72, HR 43, SpO2 100%, afebrile with temp of 97.7. Provider notified. EKG ordered and obtained reading sinus
maxim with sinus arrhythmia. Stat troponin ordered. IV Protonix ordered by provider and administered by this RN.
0640: Patient now stating that pressure/heaviness in chest nearly resolved. Now, ordering breakfast, resting comfortably in bed.
[2025-06-19 06:52] LABS: Hematocrit 39.1 % (37.0-47.0); Hemoglobin 13.1 g/dL (12.0-16.0); Mean Corp Hgb Conc. 33.5 g/dL (33.0-37.0); Mean Corpuscular Volume 85.4 fL (81.0-99.0); Platelet Count 233 10^3/uL (130-400); Red Cell Dist. Width 12.6 % (11.5-14.5)
[2025-06-19 07:00] VITALS: BP 109/62
--- NOTE | 2025-06-19 07:07 | W.PN.UPDATE ---
Update Note
Progress Note Update
RN reports patient is complaining of chest discomfort. Patient seen and evaluated. patient reports she is having 'more like flu like body aches', pointing at b/l chests towards the mid chest, thinks it could be the bed. no fever no chills. 108/72 43
22 97.7 100%, heart murmur noted on auscultation, states she has aortic stenosis and and is aware of the heart murmur. Patient states she feels better after Protonix IV and Maalox PO. Will order EKG and Troponin, influenza Covid.
[2025-06-19 07:11] LABS: Blood Urea Nitrogen 17 mg/dl (7-17); Calcium 9.9 mg/dl (8.4-10.2); Carbon Dioxide 23 mmol/L (22-30); Chloride 112 mmol/L (98-107); Estimated Creatinine Clearance 105 ml/min; Glucose 130 mg/dl (70-99); Magnesium 2.1 mg/dl (1.6-2.3); Potassium 4.2 mmol/L (3.5-5.1); Sodium 140 mmol/L (135-145); eGFR > 60.00
[2025-06-19 07:22] LABS: Troponin I 0.021 ng/ml
[2025-06-19 07:26] LABS: Vitamin D, 25-OH*** 23.8 ng/mL (30-80)
[2025-06-19 07:38] LABS: Glucose - Point of Care 158 mg/dl (70-99)
[2025-06-19 07:57] LABS: COVID-19 Antigen Negative (Negative)
[2025-06-19] MEDS: NOVOLOG FLEXPEN-LOW RESISTANCE 1 UNITS SC (08:01)
[2025-06-19] MEDS: LIPITOR 80 MG PO (08:02)
[2025-06-19] MEDS: FARXIGA 10 MG PO (08:02)
[2025-06-19] MEDS: ZETIA 10 MG PO (08:02)
[2025-06-19] MEDS: CHANTIX 0.5 MG PO (08:02)
[2025-06-19] MEDS: AMARYL 4 MG PO (08:02)
[2025-06-19] MEDS: ASPIR LOW (ENTERIC COATED) 81 MG PO (08:02)
[2025-06-19] MEDS: PROTONIX 20 MG PO (08:02)
[2025-06-19] MEDS: ZESTRIL PO (08:03)
--- NOTE | 2025-06-19 08:30 | W.PN.HOSP.TC ---
Today's Communication/Plan
-
see A/P
Assessment / Plan
Assessment / Plan
HPI: 60 yo F PMH HTN, HLD, NIDDM, CAD multiple stents on DAPT, Kidney Stones, Tobacco Dependence p/w hematuria intermittently over the past 3 weeks of which she typically notes is related to passing kidney stone. Pt also notes intermittent heartburn
sensation in the center lower chest with nausea, lightheadedness and pain between her shoulder blades.
Labs noted mild persistent elevation Calcium. Troponin also noted elevated 0.033, 0.031 from prior <0.012 but still within normal range. EKG showed no acute changes from prior. CT chest/abd/pelvis neg for aneurysm/dissection/pulmonary embolism.
Noted chronic 1.5 cm calculus rt renal pelvis non-obstructing. Also noted signs of right sided pyelonephritis.
A/P:
# Possible Atypical Chest pain
# CAD w/ multiple stents
Tele showed sinus bradycardia
Troponin mildly elevated, peaked at 0.33
No acute EKG changes noted
Cont home DAPT ASAS Prasugrel
Protonix 20 mg daily started and maalox prn for possible GERD/heartburn
Card CS for possible symptomatic bradycardia
# Possible Right Pyelonephritis as noted on CT
# Possible complicated UTI
Follow urine culture
cont zosyn for now (patient hx cephalosporin allergy, reports tolerating Augmentin before but also says Augmentin does nothing for her)
d/w Uro Dr Miranda, [facility] outpt work up for the chronic R renal stone, nothing more to add during hospital stay
# Mild Persistent Hypercalcemia, resolved
Hypercalcemia likely the cause of kidney stone
Noted Vit D decreased at 23.8, PTH high at 120
?Primary hyperparathyroidism induced hypercalcemia. Pt has been informed to follow up with endo outpt for further work up
# HTN
cont home lisinopril w/ holding parameters
# HLD
cont home ezetimibe atorvastatin
# NIDDM
Follow A1c
low dose sliding scale
cont glimepiride, Jardiance (or hospital equivalent [facility])
# Constipation
Laxatives prn
# Anxiety
Cont home ativan prn
# Tobacco Dependence
cont home chantix
declined nicotine supplementation
Diet: Cholesterol lowering 2g NA carb controlled diet
DVT ppx SCDs
Full Code
total time spent 51 min
Anticipated Discharge: Within 24 hours
Subjective/Interval History
-
Date of Service: June 19, 2025
Objective Data
-
Labs:
Laboratory Results
06/19/25
06:40
WBC 6.6
Hgb 13.1
Hct 39.1
Plt Count 233
Sodium 140
Potassium 4.2
Chloride 112 H
Carbon Dioxide 23
BUN 17
Creatinine 0.6
Glucose 130 H
Calcium 9.9
Vital Signs:
Vital Signs
Temp Pulse Resp BP Pulse Ox
36.5 C 43 22 109/62 100
06/19/25 06:25 06/19/25 06:25 06/19/25 06:25 06/19/25 08:03 06/19/25 06:25
I&O
06/18/25 06/19/25 06/20/25
06:59 06:59 06:59
Intake Total 649 / 649
Balance 649 / 649
Review of Systems
-
History Source: Patient
Cardiac: Denies Chest Pain (resolved ) or Palpitations
Genitourinary: Reports Other (hematuria ongoing for months)
Physical Exam
-
General: Well Developed, Well Nourished, No Apparent Distress, Comfortable and Conversant; Negative Respiratory Distress
HEENT: Normocephalic, Atraumatic, Nose Appears Normal and Ears Appear Normal; Negative Oxygen
Respiratory: Clear to Auscultation and Non Labored Respirations; Negative Accessory Resp Muscle Use
Cardiac: Regular Rhythm and S1/S2
GI: Soft, Nontender, Nondistended and Normal Bowel Sounds
Genito-urinary: No Costovertebral Tender
Skin: Warm and Dry
Neuro: Awake, Alert, Oriented and AO x 3
Psych: Calm and Intact Judgement/Insight
Data Reviewed
-
CT Scan: Report Reviewed by me
Labs: Labs Reviewed by me and Discussed with Patient
[2025-06-19] MEDS: LR IV (08:56)
[2025-06-19] MEDS: EFFIENT 10 MG PO (09:07)
[2025-06-19 11:00] VITALS: BP 139/77; BMI 30.4
--- NOTE | 2025-06-19 11:12 | CON.CAR ---
Consultation
Consultation Request
Date/Time Consultation Requested: 06/19/2025
Date/Time Consultation Performed: 06/19/2025
Requesting Provider: Dr. Montano
Performing Provider: Dr. Murphy
Reason for Consultation: Chest pain, bradycardia
Medical History
-
Chief Complaint: chest discomfort
History of Present Illness:
60-year-old female (known to Dr. You, her primary Certified Industrial Hygienist) with coronary artery disease status-post multiple stents (most recently a REESE to RCA on 02/11/2024), mild aortic stenosis, mild mitral stenosis, hypertension, hyperlipidemia,
NIDDM, chronic continued cigarette use (currently smoking approximately 1/2 PPD; has smoked for decades), chronic recurrent kidney stones, obesity, and anxiety admitted with chest pain and hematuria. Cardiology was consulted also for bradycardia.
Over the past month, the patient states that she has been having recurrent anginal symptoms and dyspnea. Yesterday, it felt like a car was sitting on her chest with radiation to her bilateral shoulders and tingling in her hands. She also states
that she has been noticing significant fatigue and lightheadedness/dizziness, but has not had any syncopal events.
Past Medical History
Past Medical History: CAD, HTN, NIDDM and Psychiatric (anxiety)
Past Surgical History: Cardiac (Coronary stenting, most recent REESE to RCA on 02/11/2024)
Social History
Tobacco: Smoker (Currently smoking 1/2 PPD)
Alcohol: None
Drug: None
Family History
Family History: Early CAD
Allergies / Home Medications
Allergy/AdvReac Type Severity Reaction Status Date / Time
adhesive Allergy Intermediate Rash Verified 06/18/25 09:34
cefuroxime axetil (From Allergy Swelling Verified 06/18/25 09:34
Ceftin)
Cephalosporins Allergy Swelling Verified 06/18/25 09:34
�Medication �Instructions �Recorded �Confirmed �Type
aspirin 81 mg tablet,delayed 81 mg PO DAILY Blood clot 12/17/21 06/18/25 History
release prevention/tx
atorvastatin 80 mg tablet 80 mg PO DAILY High Cholesterol 02/10/24 06/18/25 History
ezetimibe 10 mg tablet 10 mg PO DAILY High Cholesterol 02/10/24 06/18/25 History
glimepiride 4 mg tablet 4 mg PO DAILY Diabetes 02/10/24 06/18/25 History
lisinopril 40 mg tablet 40 mg PO DAILY Blood Pressure 02/10/24 06/18/25 History
prasugrel HCl 10 mg tablet 10 mg PO DAILY #30 tabs 02/12/24 06/18/25 Rx
acetaminophen 500 mg tablet 1,000 mg PO DAILYPRN PRN mild pain 06/18/25 06/18/25 History
empagliflozin 10 mg tablet 10 mg PO DAILY Diabetes 06/18/25 06/18/25 History
(Jardiance)
evolocumab 140 mg/mL subcutaneous 140 mg SC Q2W High Cholesterol 06/18/25 06/18/25 History
pen injector (Repatha SureClick)
krill oil 500 mg capsule 1,000 mg PO DAILY Supplement 06/18/25 06/18/25 History
lorazepam 0.5 mg tablet 0.5 mg PO BIDPRN PRN anxiety 06/18/25 06/18/25 History
varenicline tartrate 0.5 mg tablet 0.5 mg PO DAILY Smoking Cessation 06/18/25 06/18/25 History
Review of Systems
-
History Source: Patient
All other systems: Negative unless noted
Physical Exam
Vital Signs
Temp Pulse Resp BP Pulse Ox
98.2 F 51 18 109/62 98
06/19/25 07:00 06/19/25 07:00 06/19/25 07:00 06/19/25 08:03 06/19/25 07:00
Lab Results
06/19/25 06:40
06/19/25 06:40
Troponin I 0.021 ng/ml 06/19/25 06:40
Physical Exam
General: Well Developed, No Apparent Distress and Comfortable
HEENT: Anicteric
Respiratory: Clear
Cardiac: S1/S2, Regular Rhythm and Murmur (12/09)
Breast: Deferred by me
GI: Soft
Rectal: Deferred by Provider
Musculoskeletal: No Clubbing, No Cyanosis and No Edema
Skin: Warm and Dry
Neuro: AO x 3
Psych: Calm
Impression / Plan
-
60-year-old female (known to Dr. You, her primary Certified Industrial Hygienist) with coronary artery disease status-post multiple stents (most recently a REESE to RCA on 02/11/2024), mild aortic stenosis, mild mitral stenosis, hypertension, hyperlipidemia,
NIDDM, chronic continued cigarette use (currently smoking approximately 1/2 PPD; has smoked for decades), chronic recurrent kidney stones, obesity, and anxiety admitted with chest pain and hematuria. Cardiology was consulted also for bradycardia.
Over the past month, the patient states that she has been having recurrent anginal symptoms and dyspnea. Yesterday, it felt like a car was sitting on her chest with radiation to her bilateral shoulders and tingling in her hands. She also states
that she has been noticing significant fatigue and lightheadedness/dizziness, but has not had any syncopal events.
CAD/unstable angina:
- Patient has had multiple stents, most recently REESE to RCA on 02/11/2024.
- The patient is currently on DAPT (aspirin and prasugrel); continue.
- Patient denies hematuria this a.m.; Continue to monitor.
- Continue atorvastatin 80 mg daily and Zetia 10 mg daily.
- Will arrange cardiac catheterization for tomorrow morning; NPO after midnight.
Bradycardia:
- Patient is on no rate-controlling medications at home.
- Possibly symptomatic; could ultimately need permanent pacemaker.
- EP Cardiology evaluation after cardiac catheterization tomorrow.
Dyslipidemia:
- Not well-controlled at last check 02/12/2024 (LDL was 136).
- Patient is on Repatha as an outpatient in addition to atorvastatin 80 mg daily and Zetia.
- Will repeat lipid panel.
HTN:
- Controlled
- Continue lisinopril.
Nephrolithiasis/possible UTI:
- Management as per primary team.
Aortic stenosis:
- Currently mild as of echocardiogram on 03/02/2025; stable.
- Continue to monitor over time as outpatient.
Diabetes:
- Hemoglobin A1c on was 8.4%; recheck is currently pending.
Smoker:
- Patient never quit smoking; currently smoking 1/2 PPD.
- Counseled again today on the importance of smoking cessation.
Data Reviewed
-
EKG: Tracing Personally Visualized and interpreted (Sinus bradycardia at 43 bpm.)
Medical Tests (Nuc Med, Echo etc): Report Reviewed by me (Transthoracic echocardiogram 03/02/2025: LVEF 62%; mild functional MS (mean 4 mmHg), mild aortic stenosis (peak/mean 28/16 mmHg, MARCELL 1.6 cm�).)
Labs: Labs Reviewed by me
Old Records: Reviewed (Cardiology office note 05/2025)
[2025-06-19 11:50] LABS: Glucose - Point of Care 105 mg/dl (70-99)
[2025-06-19 11:55] LABS: Glycohemoglobin (HgbA1c) 7.2 % (4.0-5.6)
[2025-06-19] MEDS: NOVOLOG FLEXPEN-LOW RESISTANCE SC ×2 (12:04→16:54)
[2025-06-19] MEDS: ATIVAN 0.5 MG PO ×2 (12:13→20:52)
[2025-06-19 15:00] VITALS: BP 132/71
--- NOTE | 2025-06-19 16:18 | CM ---
Patient seen bedside, initial assessment completed. Patient is a 60F HTN HLD NIDDM CAD multiple stents on DAPT Kidney Stones Tobacco Dependence p/w hematuria intermittently. Presented w/ chest discomfort.
Patient resides w/ spouse in a [facility], no steps to enter. Patient is independent in all areas, no DME reported. No SNF/HC hx reported. Cardiac rehab last year in February. Patient anticipating she'll need cardiac rehab again if she needs another heart
cath this admission.
Address, point of contact and insurance verified
PCP: Ellen Herrera
Pharmacy: [facility]
Patient is admitted obs status. OOBS form verbally reviewed, copy provided, copy on chart
Patient anticipating transfer to IVU tomorrow
Plan: Anticipating home, no needs
[2025-06-19 16:46] LABS: Glucose - Point of Care 141 mg/dl (70-99)
--- NOTE | 2025-06-19 18:29 | PTCARENOTE ---
Patient will be NPO after midnight, preparing for cardiac cath 06/20. Pt felt anxious and scared. Reassured pt. Plan of care ongoing.
[2025-06-19 19:19] VITALS: BP 138/59
[2025-06-19] MEDS: MELATONIN 5 MG PO (20:52)
[2025-06-19] MEDS: LR 1000 IV (20:56)
[2025-06-19 20:57] LABS: Glucose - Point of Care 134 mg/dl (70-99)
[2025-06-19 23:20] VITALS: BP 123/55
[2025-06-20] VITALS (14 sets, daily range): BP systolic 137–175; BP diastolic 65–88; BMI 30.6
[2025-06-20] MEDS: ZOSYN 50 IV ×3 (07:07→18:38)
[2025-06-20 07:36] LABS: Glucose - Point of Care 113 mg/dl (70-99)
[2025-06-20 08:08] LABS: Hematocrit 41.0 % (37.0-47.0); Hemoglobin 13.4 g/dL (12.0-16.0); Mean Corp Hgb Conc. 32.7 g/dL (33.0-37.0); Mean Corpuscular Volume 86.1 fL (81.0-99.0); Platelet Count 240 10^3/uL (130-400); Red Cell Dist. Width 12.3 % (11.5-14.5)
[2025-06-20 08:32] LABS: Blood Urea Nitrogen 15 mg/dl (7-17); Calcium 9.6 mg/dl (8.4-10.2); Carbon Dioxide 28 mmol/L (22-30); Chloride 109 mmol/L (98-107); Estimated Creatinine Clearance 90 ml/min; Glucose 123 mg/dl (70-99); HDL Cholesterol 55 mg/dl; LDL Cholesterol, Calculated 29 mg/dl; Magnesium 2.1 mg/dl (1.6-2.3); Potassium 4.3 mmol/L (3.5-5.1); Sodium 142 mmol/L (135-145); Very Low Density Lipoprotein 27 mg/dl (0-30); eGFR > 60.00
[2025-06-20 09:01] LABS: TSH 1.20 uIU/ml (0.47-4.68)
--- NOTE | 2025-06-20 09:01 | W.PN.HOSP.TC ---
Today's Communication/Plan
-
see A/P
Assessment / Plan
Assessment / Plan
HPI: 60 yo F PMH HTN, HLD, NIDDM, CAD multiple stents on DAPT, Kidney Stones, Tobacco Dependence p/w hematuria intermittently over the past 3 weeks of which she typically notes is related to passing kidney stone. Pt also notes intermittent heartburn
sensation in the center lower chest with nausea, lightheadedness and pain between her shoulder blades.
Labs noted mild persistent elevation Calcium. Troponin also noted elevated 0.033, 0.031 from prior <0.012 but still within normal range. EKG showed no acute changes from prior. CT chest/abd/pelvis neg for aneurysm/dissection/pulmonary embolism.
Noted chronic 1.5 cm calculus rt renal pelvis non-obstructing. Also noted signs of right sided pyelonephritis.
A/P:
# Atypical Chest pain
# h/o CAD w/ multiple stents
# sinus bradycardia, likely symptomatic
Troponin mildly elevated, peaked at 0.33
No acute EKG changes noted
Cont home DAPT ASAS Prasugrel
Protonix 20 mg daily started and maalox prn for possible GERD/heartburn
Card on board, [facility] cardiac cath plan for 06/20
Also consider EP study for likely PPM for symptomatic bradycardia
# Possible Right Pyelonephritis as noted on CT
# Possible complicated UTI
Urine culture grew Mixed dirk
cont zosyn for now (patient hx cephalosporin allergy, reports tolerating Augmentin before but also says Augmentin does nothing for her)
d/w Uro Dr Miranda, [facility] outpt work up for the chronic R renal stone, nothing more to add during hospital stay
# Mild Persistent Hypercalcemia, resolved
Hypercalcemia likely the cause of kidney stone
Noted Vit D decreased at 23.8, PTH high at 120
?Primary hyperparathyroidism induced hypercalcemia. Pt has been informed to follow up with endo outpt for further work up
# HTN
cont home lisinopril w/ holding parameters
# HLD
cont home ezetimibe atorvastatin
# NIDDM
A1c 7.2%
low dose sliding scale
cont glimepiride, Jardiance (or hospital equivalent [facility])
# Constipation
Laxatives prn
# Anxiety
Cont home Ativan prn
# Tobacco Dependence
cont home chantix
declined nicotine supplementation
Counselled on smoking cessation
DVT ppx SCDs
Full Code
Anticipated Discharge: > 48 hours
Subjective/Interval History
-
Date of Service: June 20, 2025
Objective Data
-
Labs:
Laboratory Results
06/20/25
07:40
WBC 6.4
Hgb 13.4
Hct 41.0
Plt Count 240
Sodium 142
Potassium 4.3
Chloride 109 H
Carbon Dioxide 28
BUN 15
Creatinine 0.7
Glucose 123 H
Calcium 9.6
Vital Signs:
Vital Signs
Temp Pulse Resp BP Pulse Ox
36.3 C 52 18 172/82 100
06/20/25 07:00 06/20/25 07:00 06/20/25 07:00 06/20/25 07:00 06/20/25 07:00
I&O
06/19/25 06/20/25 06/21/25
06:59 06:59 06:59
Intake Total 649 / 649 720 / 720
Balance 649 / 649 720 / 720
Review of Systems
-
History Source: Patient
Cardiac: Reports Chest Pain (intermittent); Denies Palpitations
Genitourinary: Reports Other (hematuria ongoing for months)
Physical Exam
-
General: Well Developed, Well Nourished, No Apparent Distress, Comfortable and Conversant; Negative Respiratory Distress
HEENT: Normocephalic, Atraumatic, Nose Appears Normal and Ears Appear Normal; Negative Oxygen
Respiratory: Clear to Auscultation and Non Labored Respirations; Negative Accessory Resp Muscle Use
Cardiac: Regular Rhythm and S1/S2
GI: Soft, Nontender, Nondistended and Normal Bowel Sounds
Skin: Warm and Dry
Neuro: Awake, Alert, Oriented and AO x 3
Psych: Calm and Intact Judgement/Insight
Data Reviewed
-
CT Scan: Report Reviewed by me
Labs: Labs Reviewed by me and Discussed with Patient
--- NOTE | 2025-06-20 09:09 | W.PN.CD ---
Today's Communication / Plan
-
Cardiac catheterization for clarification of coronary anatomy.
GLP-1 agonist at the time of discharge.
OMT/GDMT as hemodynamics will tolerate.
Impression / Plan
-
Impression/Plan: 60-year-old female (known to Dr. You, her primary Is Technician) with coronary artery disease status-post multiple stents (most recently a REESE to RCA on 02/11/2024), mild aortic stenosis, mild mitral stenosis, hypertension,
hyperlipidemia, NIDDM, chronic continued cigarette use (currently smoking approximately 1/2 PPD; has smoked for decades), chronic recurrent kidney stones, obesity, and anxiety admitted with chest pain and hematuria.
#CAD/unstable angina:
-Chronic.
-Troponin = 0.033 --> 0.031 --> 0.027 --> 0.021.
-Patient has had multiple PCI (Xience Skypoint 3.5 x 18 to pLCx, 2.5 x 15 REESE to D1 on 01/09/2022; Xience Skypoint 2.5 x 15 to OM2, 2.25 x 23 to RPDA, 3.0 x 28 REESE to dRCA, 4.0 x 38 to pRCA in 12/17/2021), most recently Xience Skypoint 3.0 x 18 REESE
to RCA ISR on 02/11/2024.
-Continue DAPT (aspirin and prasugrel) for at least 12 months, likely lifelong given stent burden.
-History of hematuria, currently stable.
-Continue atorvastatin 80 mg ezetimibe 10 mg.
-Cardiac catheterization today to clarify coronary anatomy and r/o recurrent ISR or ischemia as a cause of chest pain.
#Bradycardia:
-Patient is not on rate-controlling medications at home.
-Possibly symptomatic; could ultimately need permanent pacemaker.
-EP Cardiology evaluation after cardiac catheterization tomorrow.
#Dyslipidemia:
-Chronic, stable.
-Total cholesterol = 111, LDL = 29, HDL = 55, Triglycerides = 139.
-Continue evolocumab/atorvastatin/ezetimibe.
#HTN:
-Chronic, stable, controlled.
-Continue lisinopril.
#Nephrolithiasis/possible pyelonephritis:
-Seen on CTA abdomen/pelvis.
-Management as per primary team.
-Piperacillin/tazobactam.
-UCx NGTD.
#Aortic stenosis:
-Chronic, mild as of echocardiogram on 03/02/2025.
-Continue to monitor as outpatient.
#Mitral stenosis:
-Chronic, mild as of echocardiogram on 03/02/2025.
-Continue to monitor as outpatient.
#NIDDM2:
-Chronic, stable but uncontrolled.
-HbA1c 7.2%.
-Continue empagliflozin 10 mg daily.
-There is a role for GLP-1 agonists as an outpatient.
#Tobacco abuse:
-Chronic.
-Currently smoking 1/2 PPD.
-Currently on varenicline.
Subjective/Interval History:
CTA shows evidence of possible pyelonephritis, no evidence of dissection or acute cardiovascular pathology.
DATA:
CTA Chest/abdomen/pelvis, 06/18/2025:
IMPRESSION:
No thoracic or abdominal aortic aneurysm or dissection. No pulmonary embolism. Coronary artery calcifications.
Chronic 1.5 cm calculus in the right renal pelvis, without obstruction, though with findings highly suspicious for secondary superimposed infection/pyelitis.
Mild thoracic degenerative disc disease. No compression deformity. Mild lumbar facet arthrosis. No CT evidence to suggest osteomyelitis.
Stable 2 mm nodule along the superior aspect of the left major fissure and stable 2 mm subpleural nodule in the lateral segment of the right middle lobe. Of doubtful clinical significance.
TTE, 03/02/2025:
CONCLUSIONS
Normal biventricular size and systolic function without regional wall motion
abnormality. LVEF 62%.
Mitral annular calcification with mild functional mitral stenosis (mean 4
mmHg).
Mild aortic stenosis (peak/mean 28/16 mmHg, MARCELL 1.6 cm2).
No change compared to prior echocardiogram in February 2024.
Physical Exam
Vital Signs/Labs
Vital Signs
Temp Pulse Resp BP Pulse Ox
36.3 C 52 18 172/82 100
06/20/25 07:00 06/20/25 07:00 06/20/25 07:00 06/20/25 07:00 06/20/25 07:00
06/18/25 06/19/25 06/20/25
11:59 11:59 11:59
Actual Weight 81.647 kg 80.314 kg 80.91 kg
06/20/25 07:40
06/20/25 07:40
Magnesium 2.1 mg/dl (1.6-2.3) 06/20/25 07:40
Triglycerides 139 mg/dl (10-149) 06/20/25 07:40
LDL Cholesterol, Calc 29 mg/dl 06/20/25 07:40
VLDL Cholesterol, Calc 27 mg/dl (0-30) 06/20/25 07:40
HDL Cholesterol 55 mg/dl 06/20/25 07:40
TSH 1.20 uIU/ml (0.47-4.68) 06/20/25 07:40
LAB Results
06/18/25 06/18/25 06/18/25
10:57 14:01 19:23
Troponin I 0.033 0.031 0.027
06/19/25
06:40
Troponin I 0.021
Physical Exam
Constitutional: No acute distress and Comfortable
EENT: Anicteric and Moist mucous membranes
Cardiovascular: Rhythm & rate is regular, Pedal edema is absent, JVD pressure is normal, S1S2 is normal and Murmur/rub/gallop absent
Respiratory: Respiratory effort normal, Lungs clear to auscul., Wheeze Absent, Crackles Absent and Rhonchi Absent
GI: Soft, Distention absent, Flat, Non tender and Normal bowel sounds
Neuro/Psych: AO x 3
Data Reviewed
-
Date of Service: June 20, 2025
Medical Decision Making: Reviewed Test Results, Independent Historian Assessment and Test Interpretation
EKG: Tracing Personally Visualized and interpreted and Report Reviewed by me
Echo: Report Reviewed by me
X-Ray/CT/US/MRI/NUC/PET: Image Personally Visualized and interpreted and Report Reviewed by me
Medical Tests (PFT, Pathology etc): Image Personally Visualized and interpreted and Report Reviewed by me
Labs: Labs Reviewed by me
Old Records: Reviewed
[2025-06-20] MEDS: NOVOLOG FLEXPEN-LOW RESISTANCE SC ×3 (09:51→18:46)
[2025-06-20] MEDS: CHANTIX 0.5 MG PO (09:57)
[2025-06-20] MEDS: ZETIA 10 MG PO (09:58)
[2025-06-20] MEDS: ASPIR LOW (ENTERIC COATED) 81 MG PO (09:58)
[2025-06-20] MEDS: LIPITOR 80 MG PO (09:58)
[2025-06-20] MEDS: FARXIGA 10 MG PO (09:58)
[2025-06-20] MEDS: ZESTRIL 40 MG PO (10:04)
[2025-06-20] MEDS: PROTONIX 20 MG PO (10:05)
[2025-06-20] MEDS: EFFIENT 10 MG PO (10:09)
--- NOTE | 2025-06-20 11:20 | CM ---
Patient for possible pacemaker placement in labor expediter today, plan is to home when stable.
Plan; Home when stable, no needs.
--- NOTE | 2025-06-20 11:40 | ITS.CL.CATH ---
Product Support Sales Representative - Catheterization
Cardiac Catheterization
Procedure Report:
CARDIAC CATHETERIZATION REPORT
Date of Procedure: 06/20/2025
Referring: Adebayo Murphy M.D.
INDICATION: Known coronary artery disease, recurrent chest pain concerning for angina.
PROCEDURE:
1. Left heart catheterization.
2. Coronary angiography.
A total of 37 minutes of procedural/moderate sedation was utilized. An independent medical records supervisor was present to assist with and help manage the patient's level of consciousness and physiologic status.
ACCESS:
1. 6 [place] right common femoral artery using a modified Seldinger technique with a micropuncture kit under ultrasound guidance.
CATHETERS:
1. 5 [place] JR4.
2. 5 [place] JL 3.5.
HEMODYNAMIC DATA
Weight (kg): 81.0
AO (s/d/x, mmHg): 180/81/115
LV (s/x mmHg): 180/15
LEFT VENTRICULOGRAPHY: Not performed.
CORONARY ANGIOGRAPHY
Dominance: Right.
Left Main: Normal size, trifurcating vessel. There is no coronary artery disease.
LAD: Normal size vessel giving rise to 1 significant diagonal. There is a patent stent in the proximal portion of the diagonal. There is a 30% lesion in the mid LAD after the origin of the diagonal.
Ramus: Small size, vestigial vessel.
Circumflex: Large size, nondominant vessel giving rise to 1 obtuse marginal. Patent stents are observed in the proximal circumflex as well as in the midportion of the obtuse marginal. There is an area of luminal irregularity between the 2
stented segments.
RCA: Normal size, dominant vessel. Patent stents are observed in the proximal vessel with 10% in-stent restenosis. There are patent stents in the distal RCA and RPDA with <10% in-stent restenosis.
INTERVENTION(S)
None.
Closure Device: 6 [place] Angio-Seal.
Radiation (mGy): 263
DAP (cm2.Gy): 15.0
Fluoroscopy time (minutes): 1.7
CONCLUSIONS
1. Right dominant circulation with a 30% lesion in the mid LAD, patent stents in the proximal diagonal, patent stents in the proximal circumflex and the midportion of the obtuse marginal with luminal irregularities in between, patent stents in the
proximal RCA with 10% in-stent restenosis and extensive stent burden in the distal RCA and RPDA with <10% in-stent restenosis.
2. Mildly elevated filling pressures (LVEDP = 15 mmHg at 81.0 kg).
3. Likely right radial artery occlusion given inability to pass the sheath wire.
RECOMMENDATIONS:
1. Expectant management after cardiac catheterization via right common femoral approach.
2. Limited weight bearing for one week.
3. Maintain current antiplatelet therapy through January 2026.
4. Continue aggressive secondary prevention with high-dose, high potency statin, PCSK9 inhibitor and ezetimibe. LDL at goal.
5. OMT/GDMT as hemodynamics tolerate.
Copy to: Adebayo Murphy M.D., MACY Wang, Alden You M.D.
Wily Epps, DO, FACC, FACP
[2025-06-20 12:34] LABS: Glucose - Point of Care 94 mg/dl (70-99)
[2025-06-20] MEDS: AMARYL 4 MG PO (14:31)
--- NOTE | 2025-06-20 15:45 | PTCARENOTE ---
Patient with hematuria (light pink) in bathroom toilet. Patient assisted back into bed. Will continue to monitor and record urine output.
[2025-06-20] MEDS: FLUSH (NSS) 1 FLUSH IV (18:39)
[2025-06-20 18:44] LABS: Glucose - Point of Care 104 mg/dl (70-99)
[2025-06-20] MEDS: MELATONIN 5 MG PO (21:57)
[2025-06-20 22:10] LABS: Glucose - Point of Care 187 mg/dl (70-99)
[2025-06-21] MEDS: ZOSYN 50 IV ×5 (00:24→23:01)
[2025-06-21 03:45] VITALS: BP 167/79
[2025-06-21 06:00] VITALS: BMI 30.3
[2025-06-21 06:00] LABS: Glucose - Point of Care 98 mg/dl (70-99)
[2025-06-21 07:00] VITALS: BP 157/74
--- NOTE | 2025-06-21 07:43 | CON.EPS ---
Consultation
-
Date/Time Consultation Requested: 06/20/25
Date/Time Consultation Performed: 06/20/25
Reason for Consultation: symptomatic bradycardia
Medical History
-
Chief Complaint: chest pain
History of Present Illness:
60-year-old female (known to Dr. You, her primary Rn Nicu) with coronary artery disease status-post multiple stents (most recently a REESE to RCA on 02/11/2024), mild aortic stenosis, mild mitral stenosis, hypertension, hyperlipidemia,
NIDDM, chronic continued cigarette use (currently smoking approximately 1/2 PPD; has smoked for decades), chronic recurrent kidney stones, obesity, and anxiety admitted with chest pain and hematuria. Cardiology was consulted also for bradycardia.
Over the past month, the patient states that she has been having recurrent anginal symptoms and dyspnea. On 06/19/25, it felt like a car was sitting on her chest with radiation to her bilateral shoulders and tingling in her hands. She also states
that she has been noticing significant fatigue and lightheadedness/dizziness, but has not had any syncopal events.
She had severe bradycardia with heart rate to 40s at rest dipping down to 30s. She had known to have severe bradycardia had been observed conservatively. Her baseline heart rate was in 50s when it was decided to conservatively manage but heart rate
has Going down to 40s Now. Patient reports that her bradycardia is associated with fatigue, dizziness, lightheadedness and presyncope. She denies any syncope.
She underwent cardiac cath on 06/20/25 that showed patent old stents and no new disease.
ECHO: 03/02/25: Normal biventricular size and systolic function without regional wall motion abnormality. LVEF 62%.
Mitral annular calcification with mild functional mitral stenosis (mean 4 mmHg).
Mild aortic stenosis (peak/mean 28/16 mmHg, MARCELL 1.6 cm2).
Cath: 06/20/25:
1. Right dominant circulation with a 30% lesion in the mid LAD, patent stents in the proximal diagonal, patent stents in the proximal circumflex and the midportion of the obtuse marginal with luminal irregularities in between, patent stents in the
proximal RCA with 10% in-stent restenosis and extensive stent burden in the distal RCA and RPDA with <10% in-stent restenosis.
2. Mildly elevated filling pressures (LVEDP = 15 mmHg at 81.0 kg).
3. Likely right radial artery occlusion given inability to pass the sheath wire.
Past Medical History
Past Medical History: CAD (Status post PCI with stent to LAD, D1, LCx, OM, and recently in proximal RCA), HTN, NIDDM and Psychiatric (Anxiety)
Past Electrophysiology History: Sick Sinus Syndrome (So far conservatively managed. Not on any negative chronotropic agents)
Past EP Interventions: None
Social History
Tobacco: Smoker
Alcohol: None
Drug: None
Personal:
Living: With Family
Family History
Family History: Reviewed & Not Pertinent and Early CAD
Allergies / Home Medications
Allergy/AdvReac Type Severity Reaction Status Date / Time
adhesive Allergy Intermediate Rash Verified 06/18/25 09:34
cefuroxime axetil (From Allergy Swelling Verified 06/18/25 09:34
Ceftin)
Cephalosporins Allergy Swelling Verified 06/18/25 09:34
�Medication �Instructions �Recorded �Confirmed �Type
aspirin 81 mg tablet,delayed 81 mg PO DAILY Blood clot 12/17/21 06/18/25 History
release prevention/tx
atorvastatin 80 mg tablet 80 mg PO DAILY High Cholesterol 02/10/24 06/18/25 History
ezetimibe 10 mg tablet 10 mg PO DAILY High Cholesterol 02/10/24 06/18/25 History
glimepiride 4 mg tablet 4 mg PO DAILY Diabetes 02/10/24 06/18/25 History
lisinopril 40 mg tablet 40 mg PO DAILY Blood Pressure 02/10/24 06/18/25 History
prasugrel HCl 10 mg tablet 10 mg PO DAILY #30 tabs 02/12/24 06/18/25 Rx
acetaminophen 500 mg tablet 1,000 mg PO DAILYPRN PRN mild pain 06/18/25 06/18/25 History
empagliflozin 10 mg tablet 10 mg PO DAILY Diabetes 06/18/25 06/18/25 History
(Jardiance)
evolocumab 140 mg/mL subcutaneous 140 mg SC Q2W High Cholesterol 06/18/25 06/18/25 History
pen injector (Arjun Tucker)
krill oil 500 mg capsule 1,000 mg PO DAILY Supplement 06/18/25 06/18/25 History
lorazepam 0.5 mg tablet 0.5 mg PO BIDPRN PRN anxiety 06/18/25 06/18/25 History
varenicline tartrate 0.5 mg tablet 0.5 mg PO DAILY Smoking Cessation 06/18/25 06/18/25 History
Review of Systems
-
All other systems: Negative unless noted
Physical Exam
Vital Signs
Temp Pulse Resp BP Pulse Ox
97.8 F 53 16 167/79 100
06/21/25 03:45 06/21/25 03:45 06/21/25 03:45 06/21/25 03:45 06/21/25 03:45
Diagnostic Results
Sodium 142 mmol/L (135-145) 06/20/25 07:40
Potassium 4.3 mmol/L (3.5-5.1) 06/20/25 07:40
Chloride 109 mmol/L (98-107) H 06/20/25 07:40
Carbon Dioxide 28 mmol/L (22-30) 06/20/25 07:40
Magnesium 2.1 mg/dl (1.6-2.3) 06/20/25 07:40
Total Bilirubin 0.7 mg/dl (0.2-1.3) 06/18/25 10:57
AST 20 U/L (14-36) 06/18/25 10:57
ALT 22 U/L (0-35) 06/18/25 10:57
Alkaline Phosphatase 90 U/L (38-126) 06/18/25 10:57
Troponin I 0.021 ng/ml 06/19/25 06:40
Total Protein 6.7 g/dl (6.3-8.2) 06/18/25 10:57
Albumin 4.3 g/dl (3.5-5.0) 06/18/25 10:57
TSH 1.20 uIU/ml (0.47-4.68) 06/20/25 07:40
Date of Last Echo: 03/02/25
LV Ejection Fraction: 60
Physical Exam
General: Well Developed and Well Nourished
HEENT: Normocephalic, Anicteric and Moist Mucous Membranes
Respiratory: Clear, Wheezes, Rales and Rhonchi
Cardiac: S1/S2 and Regular Rhythm
GI: Soft, Non Distended and Normal Bowel Sounds
Musculoskeletal: No Clubbing, No Cyanosis and No Edema
Skin: Warm and Dry
Neuro: Awake, Alert, Oriented, AO x 3 and No Motor Deficits
Psych: Calm
Impression / Plan
-
60-year-old woman, patient of Dr. You, with premature coronary disease status post multiple stents to LAD, LCx and recently RCA with heavy RCA stent burden, mild aortic stenosis, mild mitral stenosis, HTN, DM, continued tobacco abuse, chronic
recurrent kidney stones who presented with bradycardia and chest pain with lightheadedness and dizziness.
Presyncope, fatigue and dizziness
- Sick sinus syndrome�well-known for many years.
- Now bradycardia is becoming significantly symptomatic
- Left heart cath shows patent stents in coronary vessels.
- Patient's bradycardia and sick sinus syndrome was discussed in detail. Patient and her were both present. We discussed in detail the options of conservatively managing. However, patient is getting frustrated with increasing symptoms of
fatigue and lightheadedness with bradycardia. She has a friend who has bradycardia but has no symptoms which is quite different for her own situation. She is interested in pursuing a pacemaker at this time.
- We discussed options including transvenous pacemakers with leads versus leadless pacemaker. Patient is noted to have only atrial pacing leads. However, she does have a history of severe vascular disease and may have significant peripheral
vascular disease as well. The risks of delayed pacemaker may be higher for her and she is interested in pursuing her dual-chamber pacemaker especially with her premature coronary artery disease and advancing conduction disease.
- Patient just had a cath done this a.m., and we will obtain consent for pacemaker tomorrow.
- Plan for dual-chamber pacemaker in AM. N.p.o. after midnight
- Given patient's allergies to cephalosporins, we will give vancomycin and aztreonam for prophylaxis.
- Patient is left-handed and will proceed right side advised. Patient does have a history of right lumpectomy but has had no issues with the venous or lymphatic drainage. She was noted to have occluded radial artery on the right arm.
CAD
-Patient has had multiple PCI (Xience Skypoint 3.5 x 18 to pLCx, 2.5 x 15 REESE to D1 on 01/09/2022; Xience Skypoint 2.5 x 15 to OM2, 2.25 x 23 to RPDA, 3.0 x 28 REESE to dRCA, 4.0 x 38 to pRCA in 12/17/2021), most recently Xience Skypoint 3.0 x 18 REESE
to RCA ISR on 02/11/2024.
- Cath 06/20/2025: Patent stents.
- Continue DAPT with aspirin and prasugrel along with Lipitor 80 mg and Zetia 10.
Data Reviewed
-
EKG: Tracing Personally Visualized and interpreted and Report Reviewed by me
Radiology: Image Personally Visualized and interpreted and Report Reviewed by me
Medical Tests (Nuc Med, Echo etc): Report Reviewed by me
Labs: Labs Reviewed by me, Discussed with Physician, Discussed with Patient and Discussed with Family
Old Records: Reviewed
[2025-06-21 08:13] LABS: Hematocrit 40.8 % (37.0-47.0); Hemoglobin 13.9 g/dL (12.0-16.0); Mean Corp Hgb Conc. 34.1 g/dL (33.0-37.0); Mean Corpuscular Volume 84.1 fL (81.0-99.0); Platelet Count 251 10^3/uL (130-400); Red Cell Dist. Width 12.5 % (11.5-14.5)
[2025-06-21 08:41] LABS: Blood Urea Nitrogen 14 mg/dl (7-17); Calcium 10.3 mg/dl (8.4-10.2); Carbon Dioxide 23 mmol/L (22-30); Chloride 111 mmol/L (98-107); Estimated Creatinine Clearance 90 ml/min; Glucose 103 mg/dl (70-99); Magnesium 2.3 mg/dl (1.6-2.3); Potassium 4.3 mmol/L (3.5-5.1); Sodium 140 mmol/L (135-145); eGFR > 60.00
[2025-06-21] MEDS: NOVOLOG FLEXPEN-LOW RESISTANCE SC ×3 (09:16→17:16)
[2025-06-21] MEDS: FARXIGA 10 MG PO (09:19)
[2025-06-21] MEDS: AMARYL PO (09:19)
[2025-06-21] MEDS: CHANTIX 0.5 MG PO (09:19)
[2025-06-21] MEDS: ZETIA 10 MG PO (09:20)
[2025-06-21] MEDS: ZESTRIL 40 MG PO (09:20)
[2025-06-21] MEDS: PROTONIX 20 MG PO (09:20)
[2025-06-21] MEDS: LIPITOR 80 MG PO (09:20)
[2025-06-21] MEDS: ASPIR LOW (ENTERIC COATED) 81 MG PO (09:20)
[2025-06-21] MEDS: EFFIENT 10 MG PO (09:21)
--- NOTE | 2025-06-21 09:38 | W.PN.HOSP.TC ---
Today's Communication/Plan
-
see A/P
Assessment / Plan
Assessment / Plan
HPI: 60 yo F PMH HTN, HLD, NIDDM, CAD multiple stents on DAPT, Kidney Stones, Tobacco Dependence p/w hematuria intermittently over the past 3 weeks of which she typically notes is related to passing kidney stone. Pt also notes intermittent heartburn
sensation in the center lower chest with nausea, lightheadedness and pain between her shoulder blades.
Labs noted mild persistent elevation Calcium. Troponin also noted elevated 0.033, 0.031 from prior <0.012 but still within normal range. EKG showed no acute changes from prior. CT chest/abd/pelvis neg for aneurysm/dissection/pulmonary embolism.
Noted chronic 1.5 cm calculus rt renal pelvis non-obstructing. Also noted signs of right sided pyelonephritis.
A/P:
# Atypical Chest pain
# h/o CAD w/ multiple stents
# sinus bradycardia, likely symptomatic
Troponin mildly elevated, peaked at 0.33
No acute EKG changes noted
Cont home DAPT ASA Prasugrel
Protonix 20 mg daily started and Maalox prn for possible GERD/heartburn
s/p cardiac cath plan for 06/20, patent stents, cont medical management
for PPM today 06/21
Card on board
# Possible Right Pyelonephritis as noted on CT
# Possible complicated UTI
Urine culture grew Mixed dirk
cont zosyn for now (patient hx cephalosporin allergy, reports tolerating Augmentin before but also says Augmentin does nothing for her)
d/w Uro Dr Miranda, [facility] outpt work up for the chronic R renal stone, nothing more to add during hospital stay
# Mild Persistent Hypercalcemia
Hypercalcemia likely the cause of kidney stone
Noted Vit D decreased at 23.8, PTH high at 120
?Primary hyperparathyroidism induced hypercalcemia. Pt has been informed to follow up with endo outpt for further work up
# HTN
cont home lisinopril w/ holding parameters
# HLD
cont home ezetimibe atorvastatin
# NIDDM
A1c 7.2%
low dose sliding scale
cont glimepiride, Jardiance (or hospital equivalent [facility])
# Constipation
Laxatives prn
# Anxiety
Cont home Ativan prn
# Tobacco Dependence
cont home chantix
declined nicotine supplementation
Counselled on smoking cessation
DVT ppx SCDs
Full Code
DW RN
Anticipated Discharge: Within 24 hours
Subjective/Interval History
-
Date of Service: June 21, 2025
Objective Data
-
Labs:
Laboratory Results
06/21/25
07:56
WBC 6.9
Hgb 13.9
Hct 40.8
Plt Count 251
Sodium 140
Potassium 4.3
Chloride 111 H
Carbon Dioxide 23
BUN 14
Creatinine 0.7
Glucose 103 H
Calcium 10.3 H
Vital Signs:
Vital Signs
Temp Pulse Resp BP Pulse Ox
36.9 C 45 18 157/74 99
06/21/25 07:00 06/21/25 07:00 06/21/25 07:00 06/21/25 07:00 06/21/25 07:00
I&O
06/20/25 06/21/25 06/22/25
06:59 06:59 06:59
Intake Total 720 / 720 1560 / 1560
Balance 720 / 720 1560 / 1560
Review of Systems
-
History Source: Patient
Cardiac: Denies Chest Pain (intermittent) or Palpitations
Genitourinary: Reports Other (hematuria ongoing for months)
Physical Exam
-
General: Well Developed, Well Nourished, No Apparent Distress, Comfortable and Conversant; Negative Respiratory Distress
HEENT: Normocephalic, Atraumatic, Nose Appears Normal and Ears Appear Normal; Negative Oxygen
Respiratory: Clear to Auscultation and Non Labored Respirations; Negative Accessory Resp Muscle Use
Cardiac: Regular Rhythm, S1/S2 and Bradycardic
GI: Soft, Nontender, Nondistended and Normal Bowel Sounds
Skin: Warm and Dry
Neuro: Awake, Alert, Oriented and AO x 3
Psych: Calm and Intact Judgement/Insight
Data Reviewed
-
CT Scan: Report Reviewed by me
Labs: Labs Reviewed by me and Discussed with Patient
[2025-06-21 11:00] VITALS: BP 159/85
[2025-06-21 11:58] LABS: Glucose - Point of Care 79 mg/dl (70-99)
--- NOTE | 2025-06-21 15:56 | ITS.CL.PACE ---
Cellophane Bath Mixer - Pacemaker Implant
Pacemaker Implant
Procedure Report:
Dual Chamber Pacemaker Placement:
Ms. Julien is a very pleasant 60 yrs old left-handed woman with severe sick sinus syndrome and symptomatic bradycardia, is recommended for PPM placement.�
Indications: Sick sinus syndrome
Date of the Procedure: 06/21/25
Pre-Operative Diagnosis: Sick sinus syndrome with symptomatic bradycardia
Post-Operative Diagnosis: Sick sinus syndrome with symptomatic bradycardia
Procedure Performed: DUAL CHAMBER PACEMAKER IMPLANTATION
Performing Physician:
Naveen Gibson MD
Anesthesia:
See anesthesia records
Pre-operative antibiotics:
Aztreonam and Vanco
Detailed Description of the Procedure:
The patient was identified using hospital identification and informed consent obtained for the procedure. The risks were explained including, but not limited to: Bleeding, infection, arrhythmia, stroke, vascular/cardiac/lung puncture, surgery,
pacemaker dependency/device malfunction. All questions were answered.
The patient was brought to the electrophysiology laboratory in stable condition in fasting state. Continuous electrocardiographic and hemodynamic monitoring was initiated. The initial rhythm was normal sinus rhythm. �
The procedure site was meticulously prepared with surgical scrub and allowed to dry with no pooling. Sterile draping was applied to cover the procedure site. The image intensifier was draped with sterile bag and positioned over the patient.
A surgical pause and time out was performed immediately prior to the procedure with review of her medical history, recent labs, allergies and medications with site of procedure identified and consent noted in the chart. Antibiotics pre operatively
given. All team members concurred.
The right infraclavicular region was prepped and draped in the usual sterile fashion. Local anesthesia was administered subcutaneously using 1% lidocaine / Bupivacaine.
Following infiltration with local anesthetic, the axillary vein was accessed using the fluoroscopic guidance using the micro-puncture apparatus. The vascular sheaths were introduced for lead access. The leads were advanced into the right ventricle
and the right atrium.
The right ventricular lead was secured in position with an active fixation technique at the septal location.
The active atrial lead was placed in the RAA. The atrial lead was positioned at the right atrial appendage with active fixation.
There was excellent sensing, pacing, and impedance from the leads, with no diaphragmatic stimulation at 10 V output.�Bovie cautery, antibiotics, and fluoroscopy were used.
The sheaths were withdrawn, and the thresholds remained acceptable. The leads were secured in position at the venous entry site with 2-0 Ethibond. A pocket was fashioned contiguous to the incision. The electrode terminals were connected to the pulse
generator, which was placed into the pocket.
The pocket was irrigated thoroughly with antibiotic solution. A TYRX pouch was installed around the generator and the leads.
The wound was closed in 3 layers using 2-0 VLoc then 4-0 Monocryl sutures to the dermis. STERIS trips were applied externally followed by Aquacel bandage. �
Procedure End:
The procedure was tolerated well. Pressure dressing applied.
Estimated Blood loss:
5 cc
Specimens Removed:
No cultures and no specimens were obtained. No intraoperative pathology was identified.
Urine output:
None
Packs / Drains/ Tubes:
None
Instrument / Sponge Count Correct:
Yes
Complications of the Procedure:
None
Condition of Patient at Time of Transfer:
Hemodynamically stable with no neurological or vascular compromise.
Device information:�
Generator: Pace/St Mendez; Model: Assurity- MRI- [id number]; Serial # [id number]�
Atrial Lead: Pace/St Mendez; Model: [id number]; Serial # [id number]
Measured data in the right atrium was sensing of 5mV, impedance of 630 ohms and threshold of 0.75 V at 0.4ms.� �
RV Lead: Pace/St Mendez; Model: [id number]; Serial # [id number]
Measured data in the RV lead was sensing of 4 mV, impedance of 690 ohms and threshold of 0.5 V at 0.4ms�
Ilno parameter settings were DDDR 60-120 bpm. �
����������� Mode Switch: On
����������� Paced AV interval: 180ms
����������� Sensed AV interval: 150 ms.
����������� VIP = ON
Output� parameters:
����������������������� Amplitude (V)������������� Pulse Width (ms)������� Sensitivity (mV)
����������� RA: ���� 3.5 ����������������� 0.4������������������ 0.3
����������� RV:����� 3.5������������������ 0.4������������������ 0.9
Summary:
Successful implantation of MRI compatible dual St Mendez chamber pacemaker
Results/Recommendations:
-Please follow up CXR�
-Please provide patient with adequate pain control�
Instructions to be given to patient:�
- Please follow up with [facility] at [address] [place] [address] ([phone]) to get your wound checked within 14 days of your discharge.
- Do not wet incision site until after it is evaluated at cardiology clinic. No soaking or bath until then. Showers or Sponge baths are OK.�Dab dry the area after a shower.
- Do not lift right elbow above shoulder, particularly with sudden jerking movements, for 1 month�
- Do not lift anything weighing more than 10 pounds with the right arm for 1 month�
- If you notice any fevers, shortness of breath, lightheadedness, chest pain, or worsening swelling in the wound site, please contact the arrhythmia clinic, contact your cartographic designer, or present to the hospital for evaluation.�
Naveen Gibson MD
Electrophysiology
[2025-06-21 16:07] VITALS: BP 143/79
[2025-06-21] MEDS: TYLENOL 650 MG PO ×2 (17:14→21:26)
[2025-06-21 17:16] LABS: Glucose - Point of Care 106 mg/dl (70-99)
[2025-06-21 19:27] VITALS: BP 148/79
[2025-06-21] MEDS: MELATONIN 5 MG PO (21:27)
[2025-06-21 21:49] LABS: Glucose - Point of Care 190 mg/dl (70-99)
[2025-06-21 23:43] VITALS: BP 122/59
[2025-06-22] MEDS: TYLENOL 650 MG PO ×2 (01:30→05:43)
--- NOTE | 2025-06-22 02:55 | DOWNTIME ---
There was a [employer] Coder Downtime on 06/22/2025 from 0100 to 06/22/2025 at 0235. Downtime documentation of patient's care, including medication administrations, has been reconciled in the electronic record per guidelines. Refer to the
patient's paper chart under the miscellaneous tab to see printed paper medication records and downtime forms.
[2025-06-22 03:41] VITALS: BP 125/57
[2025-06-22] MEDS: ZOSYN 50 IV (05:42)
[2025-06-22 07:00] VITALS: BP 143/70
[2025-06-22 07:17] LABS: Hematocrit 39.9 % (37.0-47.0); Hemoglobin 13.2 g/dL (12.0-16.0); Mean Corp Hgb Conc. 33.1 g/dL (33.0-37.0); Mean Corpuscular Volume 85.4 fL (81.0-99.0); Platelet Count 257 10^3/uL (130-400); Red Cell Dist. Width 12.3 % (11.5-14.5)
[2025-06-22 07:22] LABS: Glucose - Point of Care 109 mg/dl (70-99)
--- NOTE | 2025-06-22 07:41 | W.PN.HOSP.TC ---
Today's Communication/Plan
-
DC once cleared by card
Assessment / Plan
Assessment / Plan
HPI: 60 yo F PMH HTN, HLD, NIDDM, CAD multiple stents on DAPT, Kidney Stones, Tobacco Dependence p/w hematuria intermittently over the past 3 weeks of which she typically notes is related to passing kidney stone. Pt also notes intermittent heartburn
sensation in the center lower chest with nausea, lightheadedness and pain between her shoulder blades.
Labs noted mild persistent elevation Calcium. Troponin also noted elevated 0.033, 0.031 from prior <0.012 but still within normal range. EKG showed no acute changes from prior. CT chest/abd/pelvis neg for aneurysm/dissection/pulmonary embolism.
Noted chronic 1.5 cm calculus rt renal pelvis non-obstructing. Also noted signs of right sided pyelonephritis.
A/P:
# Atypical Chest pain
# h/o CAD w/ multiple stents
# sinus bradycardia, likely symptomatic
Troponin mildly elevated, peaked at 0.33
No acute EKG changes noted
Cont home DAPT ASA Prasugrel
Protonix 20 mg daily started and Maalox prn for possible GERD/heartburn
s/p cardiac cath plan for 06/20, patent stents, cont medical management
s/p PPM 06/21 for symptomatic sinus bradycardia
Card on board
# Possible Right Pyelonephritis as noted on CT
# Possible complicated UTI
Urine culture grew Mixed dirk
cont zosyn for now (patient hx cephalosporin allergy, reports tolerating Augmentin before but also says Augmentin does nothing for her), plan to DC on Levaquin to complete total 14 days
d/w Uro Dr Miranda, [facility] outpt work up for the chronic R renal stone, nothing more to add during hospital stay
# Mild Persistent Hypercalcemia
Hypercalcemia likely the cause of kidney stone
Noted Vit D decreased at 23.8, PTH high at 120
?Primary hyperparathyroidism induced hypercalcemia. Pt has been informed to follow up with endo outpt for further work up
# HTN
cont home lisinopril w/ holding parameters
# HLD
cont home ezetimibe atorvastatin
# NIDDM
A1c 7.2%
low dose sliding scale
cont glimepiride, Jardiance (or hospital equivalent [facility])
# Constipation
Laxatives prn
# Anxiety
Cont home Ativan prn
# Tobacco Dependence
cont home chantix
declined nicotine supplementation
Counselled on smoking cessation
DVT ppx SCDs
Full Code
DW Card
DW RN
Anticipated Discharge: Today
Subjective/Interval History
-
Date of Service: June 22, 2025
Objective Data
-
Labs:
Laboratory Results
06/22/25
06:08
WBC 9.8
Hgb 13.2
Hct 39.9
Plt Count 257
Sodium Pending
Potassium Pending
Chloride Pending
Carbon Dioxide Pending
BUN Pending
Creatinine Pending
Glucose Pending
Calcium Pending
Vital Signs:
Vital Signs
Temp Pulse Resp BP Pulse Ox
36.9 C 61 16 125/57 96
06/22/25 03:41 06/22/25 03:41 06/22/25 03:41 06/22/25 03:41 06/22/25 03:41
I&O
06/21/25 06/22/25 06/23/25
06:59 06:59 06:59
Intake Total 1560 / 1560 820 / 820
Balance 1560 / 1560 820 / 820
Review of Systems
-
History Source: Patient
Cardiac: Denies Chest Pain (intermittent) or Palpitations
Genitourinary: Reports Other (mild hematuria ongoing for months)
Physical Exam
-
General: Well Developed, Well Nourished, No Apparent Distress, Comfortable and Conversant; Negative Respiratory Distress
HEENT: Normocephalic, Atraumatic, Nose Appears Normal and Ears Appear Normal; Negative Oxygen
Respiratory: Clear to Auscultation and Non Labored Respirations; Negative Accessory Resp Muscle Use
Cardiac: Regular Rhythm, S1/S2 and Bradycardic
GI: Soft, Nontender, Nondistended and Normal Bowel Sounds
Skin: Warm and Dry
Neuro: Awake, Alert, Oriented, AO x 3 and Nonfocal/Grossly Intact
Psych: Calm and Intact Judgement/Insight
Data Reviewed
-
CT Scan: Report Reviewed by me
Labs: Labs Reviewed by me and Discussed with Patient
[2025-06-22 07:47] LABS: Blood Urea Nitrogen 20 mg/dl (7-17); Calcium 10.3 mg/dl (8.4-10.2); Carbon Dioxide 23 mmol/L (22-30); Chloride 109 mmol/L (98-107); Estimated Creatinine Clearance 90 ml/min; Glucose 92 mg/dl (70-99); Magnesium 2.3 mg/dl (1.6-2.3); Potassium 4.7 mmol/L (3.5-5.1); Sodium 139 mmol/L (135-145); eGFR > 60.00
--- NOTE | 2025-06-22 08:05 | W.PN.EPS ---
Today's Communication / Plan
-
- Device interrogation today
- Possible discharge later
Impression / Plan
-
60-year-old woman, patient of Dr. You, with premature coronary disease status post multiple stents to LAD, LCx and recently RCA with heavy RCA stent burden, mild aortic stenosis, mild mitral stenosis, HTN, DM, continued tobacco abuse, chronic
recurrent kidney stones who presented with bradycardia and chest pain with lightheadedness and dizziness.
Presyncope, fatigue and dizziness
- Sick sinus syndrome�s/p dual chamber PPM - [facility] 06/21/25
- Left heart cath shows patent stents in coronary vessels.
- Pressure dressing removed.
- CXR is done - no PTX
- Device check in device clinic next week.
- Device interrogation today.
CAD
-Patient has had multiple PCI (Xience Skypoint 3.5 x 18 to pLCx, 2.5 x 15 REESE to D1 on 01/09/2022; Xience Skypoint 2.5 x 15 to OM2, 2.25 x 23 to RPDA, 3.0 x 28 REESE to dRCA, 4.0 x 38 to pRCA in 12/17/2021), most recently Xience Skypoint 3.0 x 18 REESE
to RCA ISR on 02/11/2024.
- Cath 06/20/2025: Patent stents.
- Continue DAPT with aspirin and prasugrel along with Lipitor 80 mg and Zetia 10.
HTN:
-Chronic, stable, controlled.
-Continue lisinopril.
Aortic stenosis:
-Chronic, mild as of echocardiogram on 03/02/2025.
-Continue to monitor as outpatient.
Mitral stenosis:
-Chronic, mild as of echocardiogram on 03/02/2025.
-Continue to monitor as outpatient.
Chief Complaint / Past History
Chief Complaint / History
Date of Service: June 22, 2025
Chief Complaint: chest pain
Interval History:
Feeling well. No complaints. Grateful for the pacemaker. Reports excellent energy today.
Past Electrophysiology History: Sick Sinus Syndrome (s/p pacemaker)
Past EP Interventions: PPM Dual Chamber (s/p dual chamber right sided pacemaker - Pace (06/21/2025))
Physical Exam
Allergies
Allergy/AdvReac Type Severity Reaction Status Date / Time
adhesive Allergy Intermediate Rash Verified 06/18/25 09:34
cefuroxime axetil (From Allergy Swelling Verified 06/18/25 09:34
Ceftin)
Cephalosporins Allergy Swelling Verified 06/18/25 09:34
Vital Signs / Results
Temp Pulse Resp BP Pulse Ox
98.4 F 61 16 125/57 96
06/22/25 03:41 06/22/25 03:41 06/22/25 03:41 06/22/25 03:41 06/22/25 03:41
06/22/25 06:08
06/22/25 06:08
Sodium 139 mmol/L (135-145) 06/22/25 06:08
Potassium 4.7 mmol/L (3.5-5.1) 06/22/25 06:08
Chloride 109 mmol/L (98-107) H 06/22/25 06:08
Carbon Dioxide 23 mmol/L (22-30) 06/22/25 06:08
Magnesium 2.3 mg/dl (1.6-2.3) 06/22/25 06:08
Total Bilirubin 0.7 mg/dl (0.2-1.3) 06/18/25 10:57
AST 20 U/L (14-36) 06/18/25 10:57
ALT 22 U/L (0-35) 06/18/25 10:57
Alkaline Phosphatase 90 U/L (38-126) 06/18/25 10:57
Troponin I 0.021 ng/ml 06/19/25 06:40
Total Protein 6.7 g/dl (6.3-8.2) 06/18/25 10:57
Albumin 4.3 g/dl (3.5-5.0) 06/18/25 10:57
TSH 1.20 uIU/ml (0.47-4.68) 06/20/25 07:40
Physical Exam
General: Well Developed and Well Nourished
HEENT: Normocephalic and Moist Mucous Membranes
Respiratory: Clear and Non Labored Respirations
Cardiac: S1/S2 and Regular Rhythm
GI: Non Tender, Non Distended and Normal Bowel Sounds
Musculoskeletal: No Clubbing, No Cyanosis and No Edema
Skin: Warm and Dry
Psych: Calm
Data Reviewed
-
EKG: Tracing Personally Visualized and interpreted, Report Reviewed by me, Discussed with Physician and Discussed with Patient
Radiology: Image Personally Visualized and interpreted
Labs: Labs Reviewed by me, Discussed with Physician and Discussed with Patient
Old Records: Reviewed
--- NOTE | 2025-06-22 08:50 | CM ---
Home today, no needs.
Plan; Home no needs.
[2025-06-22] MEDS: NOVOLOG FLEXPEN-LOW RESISTANCE SC ×2 (09:27→11:50)
[2025-06-22] MEDS: AMARYL 4 MG PO (09:27)
[2025-06-22] MEDS: ASPIR LOW (ENTERIC COATED) 81 MG PO (09:28)
[2025-06-22] MEDS: PROTONIX 20 MG PO (09:28)
[2025-06-22] MEDS: ZETIA 10 MG PO (09:28)
[2025-06-22] MEDS: ZESTRIL 40 MG PO (09:28)
[2025-06-22] MEDS: FARXIGA 10 MG PO (09:28)
[2025-06-22] MEDS: LIPITOR 80 MG PO (09:28)
[2025-06-22] MEDS: CHANTIX 0.5 MG PO (09:29)
[2025-06-22] MEDS: EFFIENT 10 MG PO (09:47)
[2025-06-22 11:00] VITALS: BP 140/76
[2025-06-22] MEDS: ZOSYN IV (11:51)
--- NOTE | 2025-06-22 13:07 | W.DCSUMMARY ---
Discharge Summary
Discharge Data
Date of Admission: 06/21/25
Date of Discharge: 06/22/25
Total time spent discharging patient (in min): 40
-
Pending Results: No
Hospital Course
Principal Diagnosis:
Atypical chest pain/discomfort, likely symptomatic bradycardia
Possible Right Pyelonephritis as noted on CT
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
Chronic Diagnoses:�
CAD status post multiple stents on DAPT
kidney stone
HTN
HLD
NIDDM, A1c 7.2%
Anxiety
Tobacco Dependence. Counselled on smoking cessation
Consultations:�
Cardiology
Procedures:�
Cardiac catheterization, which was unrevealing
Pacemaker placement on 06/21/2025
Clinical course:�
This is a 60-year-old female with past medical history as stated above, who presented with atypical chest pain.
She also complains of chronic intermittent hematuria ongoing for several weeks.
Problem 1:
Atypical chest pain/discomfort, likely symptomatic bradycardia.
Her troponin was mildly elevated, peaked at 0.33.
Her EKG did not show any acute changes.
She underwent cardiac cath on 06/20, which noted patent stents, and was recommended to continue medical management including dual antiplatelet therapy aspirin and prasugrel.
She underwent pacemaker placement for symptomatic sinus bradycardia on 06/21/2025.
She can follow-up with co founder and president outpatient.
Problem 2:
Possible Right Pyelonephritis noted on CT.
Her CT scan also showed chronic nonobstructing right renal pelvis kidney stone.
Her urine culture grew mixed dirk.
Although she denies to any urinary symptoms, but she complains of intermittent chronic hematuria.
For this reason, she was started with IV antibiotic Zosyn to cover for possible complicated UTI.
She received Zosyn for 4 days while in hospital, and was discharged with oral Levaquin to complete total course of 14 days.
She has been informed to follow-up with urologist outpatient for her chronic right renal stone management.
Problem 3:
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
Her Vit D level was noted to be low at 23.8, and PTH level high at 120.
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
Pt has been informed to follow up with endo outpt for further work up
As for the rest of her medical problems, they were stable during her hospital stay.
Discharge Plan
-
Patient Disposition: Home (Routine Discharge)
Discharge Diagnosis/Procedures: Atypical Chest pain status post Cardiac catheterization (patent stents);
Symptomatic bradycardia status post pacemaker implant;
Right Pyelonephritis noted on CT with possible complicated UTI (in setting of chronic R kidney stone);
Mild Persistent Hypercalcemia (Vit D decreased at 23.8, PTH high at 120; possible Primary hyperparathyroidism induced hypercalcemia).
Condition: Good
Diet: As tolerated, Low Fat, Low Cholesterol and Low Sodium
Activity: As tolerated
Driving Restrictions: No driving for 1 week
Activity Restrictions/Additional Instructions:
Follow up with endocrinology for your hypercalcemia evaluation
Stand Alone Forms: DC Instructions- Cath/EP Lab, DC Inst - Implanted Device
Referrals:
[facility] [Provider Group] - 06/30/25 9:40 am
Referral Note: Incision check appointment
[facility] [Provider Group] - in one to two weeks
Nick Franco MD [Family Provider, [facility]] - in less than 1 week
Additional Discharge Medication Instructions: Continue Levaquin for 10 more days
Prescriptions:
New
levofloxacin 750 mg tablet
750 mg PO DAILY 10 Days Qty: 10 0RF
Probiotic 20 billion cell capsule
20,000 mmu cells PO DAILY Qty: 20 0RF
Continued
aspirin 81 MG tablet,delayed release (DR/EC)
81 mg PO DAILY
glimepiride 4 mg tablet
4 mg PO DAILY
lisinopril 40 mg tablet
40 mg PO DAILY
ezetimibe 10 mg tablet
10 mg PO DAILY
atorvastatin 80 MG tablet
80 mg PO DAILY
prasugrel HCl 10 mg Tablet
10 mg PO DAILY Qty: 30 11RF
acetaminophen 500 mg Tablet
1,000 mg PO DAILYPRN PRN (Reason: mild pain)
lorazepam 0.5 mg tablet
0.5 mg PO BIDPRN PRN (Reason: anxiety)
varenicline tartrate 0.5 mg tablet
0.5 mg PO DAILY
krill oil 500 mg Capsule
1,000 mg PO DAILY
Jardiance 10 mg tablet
10 mg PO DAILY
Repatha SureClick 140 mg/mL pen injector
140 mg SC Q2W
Discharge Orders:
Discharge Patient (As Directed); Ordered 06/22/25
Ordered By: Huong Montano
Discharge Date and Time
Discharge Date/Time: 06/22/25 12:14
Print Language: DIVEHI
--- NOTE | 2025-06-27 10:34 | OID.L.PAT ---
Pulmonary Nodule Pat Letter
- -
06/27/25
TACHO VARELA
[address]
[place], [place]
Deadanielle TITUS,
A pulmonary nodule was seen on an imaging study done by [facility]. This was reviewed by the [facility] Pulmonary Nodule Advisory Board and the following recommendation was made:
Recommendation: Per current guidelines, no further follow up is recommended
If you have any questions, please do not hesitate to contact your primary care physician. If you are in need of a Physician, you can go to [email or web address] and click on 'Find a Provider'. Type 'Family Medicine' in the search.
Oncology Nurse Navigator
[facility]
[phone]
--- NOTE | 2025-06-27 10:35 | OID.L.REC ---
Pulmonary Nodule Follow Up
- Recommendation
06/27/25
Pulmonary Nodule Review Recommendations
Your patient, TACHO VARELA, had a pulmonary nodule seen on an imaging study done on 06/18/25 in the [facility] Radiology Department.
This was reviewed by the [facility] Pulmonary Nodule Advisory Board and the following recommendation was made:
Recommendation: Per current guidelines, no further follow up is recommended
If you have any questions, please do not hesitate to contact us.
Sincerely,
Oncology Nurse Navigator
[facility]
[phone]
== END 2025-06-22 12:14 | disposition home or self-care (01) | DRG 243 ==
LOC: 4 WEST ACU 09:38
PROVIDERS: Internal Medicine Cardiovascular Disease; Nurse Practitioner Gerontology; Physician Assistant; ADMITTING PHYSICIAN Internal Medicine; ATTENDING PHYSICIAN Internal Medicine; CONSULT PHYSICIAN Internal Medicine; EMERGENCY PHYSICIAN Emergency Medicine; FAMILY PHYSICIAN Family Medicine; OTHER PHYSICIAN Internal Medicine Cardiovascular Disease
PROC: 4A023N7 Measurement of Cardiac Sampling and Pressure, Left Heart, Percutaneous Approach (ICD-10-PCS; 2025-06-20)
PROC: B211YZZ Fluoroscopy of Multiple Coronary Arteries using Other Contrast (ICD-10-PCS; 2025-06-20)
PROC: 0JH606Z Insertion of Pacemaker, Dual Chamber into Chest Subcutaneous Tissue and Fascia, Open Approach (ICD-10-PCS; 2025-06-21)
PROC: 02HK3JZ Insertion of Pacemaker Lead into Right Ventricle, Percutaneous Approach (ICD-10-PCS; 2025-06-21)
PROC: 02H63JZ Insertion of Pacemaker Lead into Right Atrium, Percutaneous Approach (ICD-10-PCS; 2025-06-21)
DX: I49.5 Sick sinus syndrome (principal); N12 Tubulo-interstitial nephritis, not specified as acute or chronic; I25.10 Atherosclerotic heart disease of native coronary artery without angina pectoris; I10 Essential (primary) hypertension; F41.9 Anxiety disorder, unspecified; E78.00 Pure hypercholesterolemia, unspecified; E66.9 Obesity, unspecified; E21.0 Primary hyperparathyroidism; F17.210 Nicotine dependence, cigarettes, uncomplicated; N20.0 Calculus of kidney; K59.09 Other constipation; I70.208 Unspecified atherosclerosis of native arteries of extremities, other extremity; E11.51 Type 2 diabetes mellitus with diabetic peripheral angiopathy without gangrene; Z11.52 Encounter for screening for COVID-19; Z88.1 Allergy status to other antibiotic agents; Z79.899 Other long term (current) drug therapy; Z79.84 Long term (current) use of oral hypoglycemic drugs; Z79.82 Long term (current) use of aspirin; Z95.5 Presence of coronary angioplasty implant and graft; Z68.30 Body mass index [BMI] 30.0-30.9, adult
CPT/HCPCS: 33208; 71045; 71275; 74174; 80048; 80053; 80061; 81003; 81015; 82306; 82962; 83036; 83735; 83970; 84443; 84484; 85025; 85027; 87086; 87502; 87811; 93005; 93458; 96361; 96365; 99152; 99153; 99285; C1760; C1785; C1892; C1894; C1898; Q9967

== ENCOUNTER → 2025-07-06 14:39 | Outpatient (REF) | payer OTHER, SELFPAY | LOC: RAD 14:39 | PROVIDERS: ATTENDING PHYSICIAN Physician Assistant Medical | DX: N93.9 Abnormal uterine and vaginal bleeding, unspecified (principal) | CPT/HCPCS: 76830; 76856 ==

== ENCOUNTER 2025-07-26 05:52 | Day surgery (SDC) | payer OTHER, SELFPAY ==
[2025-07-26] VITALS (9 sets, daily range): BP systolic 118–162; BP diastolic 61–87; BMI 30.6
[2025-07-26] MEDS: NORMOSOL-R/PLASMALYTE-A 1000 IV (06:30)
[2025-07-26 06:42] LABS: Glucose - Point of Care 134 mg/dl (70-99)
[2025-07-26 09:10] LABS: Glucose - Point of Care 129 mg/dl (70-99)
[2025-07-26] MEDS: DILAUDID 0.25 MG IV (09:37)
== END 2025-07-26 11:00 | disposition home or self-care (01) ==
LOC: SDS 05:52
PROVIDERS: ATTENDING PHYSICIAN Urology
DX: N20.0 Calculus of kidney (principal)
CPT/HCPCS: 52356; 76000; 82365; 82962; C1894; C2617

== ENCOUNTER → 2025-08-01 13:48 | Outpatient (REF) | payer OTHER, SELFPAY | LOC: MRI 13:48 | PROVIDERS: ATTENDING PHYSICIAN Nurse Practitioner Family; FAMILY PHYSICIAN Physician Assistant Medical | DX: D49.7 Neoplasm of unspecified behavior of endocrine glands and other parts of nervous system (principal) | CPT/HCPCS: 70553; A9575 ==

== ENCOUNTER 2025-10-29 17:01 | Emergency (ER) | payer OTHER, SELFPAY ==
[2025-10-29] VITALS (7 sets, daily range): BP systolic 140–188; BP diastolic 72–91; BMI 30.3
--- NOTE | 2025-10-29 17:37 | ED.GENMED ---
History of Present Illness
<MACY Dover - Last Filed: 11/01/25 18:37>
General
Chief Complaint: Chest Problem
Source: patient
Exam Limitations: none
Time Seen by Provider: 10/29/25 17:37
Nursing documentation reviewed up to this point in time: agreed with
History of Present Illness
History of Present Illness:
Patient is a 60-year-old female with past medical history of aortic stenosis CAD, 7 stents hypertension hyperlipidemia mitral regurgitation, sinus bradycardia, pacemaker presents to the ER for evaluation. Patient reports that she started with
midsternal chest discomfort this am.
She reports it feels like there is something stuck on her chest. It is intermittent. She did take a nitroglycerin which relieved the symptoms prior to arrival. She reports however she has had left shoulder pain intermittently with shortness of
breath ever since that she had her pacemaker she has still had persistent intermittent dizziness and shortness of breath.
She has cardiac disease and family. Patient also is a smoker.
Pt is on Effient(Prasugrel ) however stopped taking it 2 days ago because she is scheduled for a D&C on Friday due to abnormal vaginal bleeding.
Past History
<MACY Dover - Last Filed: 11/01/25 18:37>
Past History
ED Past Medical History: CAD, HTN, Hypercholesterolemia, NIDDM, [place], Valvular disease and Other
ED Past Surgical History: Appendectomy, Cardiac (Multiple cardiac stents) and Gynecological ( section)
Patient has exhibited threatening behavior?: No
Social History
Tobacco: Smoker
Alcohol: Occasional
Drug: None
Personal:
Living: with family
Employment: Employed
Family History
Family History: Other (reviewed and non-contributory)
Phy Exam
<MACY Dover - Last Filed: 11/01/25 18:37>
General Physical Exam
General Presentation: well appearing and no apparent distress
General age: appears stated age
General Skin: warm and dry
General Habitus: normal
General Mental: alert
General Hydration: appears well hydrated
Cardiovascular Exam
Cardiovascular Exam: regular rate/rhythm, no murmur and normal peripheral pulses
Pulmonary Exam
Pulmonary Exam: lungs clear and no respiratory distress
Neurological Exam
Neurological Exam: alert and oriented x3
Musculoskeletal Exam
Musculoskeletal Exam: full ROM
Skin Exam
Skin Exam: normal color and warm/dry
Psychiatric Exam
Psychiatric Exam: normal mood/affect
Course
<MACY Dover - Last Filed: 11/01/25 18:37>
Orders/Labs/Results
Orders:
Orders
10/29/25 17:02
EKG [Electrocardiogram (*1)] Urgent
Reason for Study: Chest Pain
EKG- Treatment ONCE
10/29/25 17:56
IV Insert/Care/Rem.- Treatment PRN
10/29/25 17:57
Cardiac Monitoring- Treatment ONCE
CR Chest - 2 Views Urgent
Comment:
Reason For Exam: cp
10/29/25 18:00
Aspirin Chewable [Low Strength Aspirin] 324 mg PO NOW STA
Nitroglycerin Sublingual [Nitrostat (Sublingual)] 0.4 mg SL [id number] PRN
10/29/25 18:08
Complete Blood Count/With Diff Urgent
Comprehensive Metabolic Panel Urgent
Troponin I Urgent
10/29/25 21:06
Troponin I Urgent
10/29/25 21:10
Electrocardiogram (*1) Urgent
Reason for Study: Chest Pain
EKG- Treatment ONCE
Abnormal Lab Results
10/29/25
18:08
Neutrophils % 37.4 L %
(42.2-75.2)
Lymphocytes % 52.2 H %
(20.5-51.1)
Creatinine 0.5 L mg/dL
(0.6-1.0)
Glucose 153 H mg/dl
(70-99)
10/29/25 18:08
10/29/25 18:08
Vital Signs
Initial and Last Documented VS:
Initial Vital Signs
Temp Pulse Resp BP Pulse Ox
98.0 F 66 16 169/91 98
10/29/25 17:05 10/29/25 17:05 10/29/25 17:05 10/29/25 17:05 10/29/25 17:05
Last Documented Vital Signs
Temp Pulse Resp BP Pulse Ox
98.4 F 60 18 148/77 97
10/29/25 18:00 10/29/25 22:00 10/29/25 18:00 10/29/25 22:00 10/29/25 22:00
<Nidia Iglesias PA-C - Last Filed: 10/30/25 02:28>
Orders/Labs/Results
Orders:
Orders
10/29/25 17:02
EKG [Electrocardiogram (*1)] Urgent
Reason for Study: Chest Pain
EKG- Treatment ONCE
10/29/25 17:56
IV Insert/Care/Rem.- Treatment PRN
10/29/25 17:57
Cardiac Monitoring- Treatment ONCE
CR Chest - 2 Views Urgent
Comment:
Reason For Exam: cp
10/29/25 18:00
Aspirin Chewable [Low Strength Aspirin] 324 mg PO NOW STA
Nitroglycerin Sublingual [Nitrostat (Sublingual)] 0.4 mg SL [id number] PRN
10/29/25 18:08
Complete Blood Count/With Diff Urgent
Comprehensive Metabolic Panel Urgent
Troponin I Urgent
10/29/25 21:06
Troponin I Urgent
10/29/25 21:10
Electrocardiogram (*1) Urgent
Reason for Study: Chest Pain
EKG- Treatment ONCE
Abnormal Lab Results
10/29/25
18:08
Neutrophils % 37.4 L %
(42.2-75.2)
Lymphocytes % 52.2 H %
(20.5-51.1)
Creatinine 0.5 L mg/dL
(0.6-1.0)
Glucose 153 H mg/dl
(70-99)
10/29/25 18:08
10/29/25 18:08
Vital Signs
Initial and Last Documented VS:
Initial Vital Signs
Temp Pulse Resp BP Pulse Ox
98.0 F 66 16 169/91 98
10/29/25 17:05 10/29/25 17:05 10/29/25 17:05 10/29/25 17:05 10/29/25 17:05
Last Documented Vital Signs
Temp Pulse Resp BP Pulse Ox
98.4 F 60 18 148/77 97
10/29/25 18:00 10/29/25 22:00 10/29/25 18:00 10/29/25 22:00 10/29/25 22:00
<MACY Dover - Last Filed: 11/01/25 18:37>
MDM/Problems Addressed
MDM/Problems Addressed:
As documented patient is a 60-year-old female with significant past medical history including multiple stents presenting for chest pain which started this morning. She is scheduled for D&E for heavy vaginal bleeding next week and therefore stopped
her Effient 2 days ago. She reported nitroglycerin did help at home she does present with active chest pain. She is in no acute distress blood pressure is elevated. She also did not take her aspirin today. Will give a dose of nitroglycerin and
aspirin. No acute findings on EKG cardiac labs including troponin ordered.
1800: Care patient this time transferred to [facility].
<MACY Dover - Last Filed: 11/01/25 18:37>
*Pulse Oximetry
SaO2: 98
Oxygen Mode of Delivery: Room air
Patient hypoxic: no
*EKG
Interpreted by ED Provider?: Yes
Heart Rate: 63
Rate: normal
Rhythm: sinus
Ischemia: non-specific ST changes
<Nidia Iglesias PA-C - Last Filed: 10/30/25 02:28>
*Radiology
Radiology exam reviewed: preliminary read by ED provider (Chest x-ray read by me-no acute abnormalities) and radiology read reviewed
*Critical Care Note
Total Time (30-74mins, 75-104mins- exclusive of procedures): Not Applicable
<Nidia Iglesias PA-C - Last Filed: 10/30/25 02:28>
Patient Management
Discussion with other providers: Senior Occupational Therapist (Case discussed with cardiology)
<Nidia Iglesias PA-C - Last Filed: 10/30/25 02:28>
Update Note
Update Note:
Update 6:45 PM: Assumed care of patient. I did reassess patient at bedside who states she is currently chest pain-free. She never received as needed nitroglycerin as ordered prior to my assessment. Lab work without clinically significant
abnormalities. Initial troponin is undetectable. She denies any shortness of breath. Will plan to trend troponin and discussed with cardiology given patient significant cardiac history.
Update 9:30 PM: Patient has remained chest pain-free since my initial assessment. She is in no respiratory distress and denies any shortness of breath or discomfort at this time. She states that she is 'hungry'. Repeat EKG without evidence of
acute ischemia and repeat troponin undetectable. While she does have significant cardiac history I have a low suspicion for acute coronary syndrome/cardiac process today given nonischemic EKG, serial troponins negative x 2 along with absence of any
chest pain. I did discuss with cardiology, Dr. Aguilar who feels close outpatient monitoring may be appropriate given negative workup and lack of symptoms. Discussed with patient at length. Offered admission for continued monitoring vs discharge
home with extremely close cardiology follow-up outpatient. Patient ultimately feels comfortable with discharge home. Will place patient on chest pain hotline. Very strict return precautions discussed. Patient comfortable plan.
ED Attending Note
<MACY Dover - Last Filed: 11/01/25 18:37>
-
Portions of this chart may have been created with voice recognition software.� Occasional wrong word or��sound alike� substitutions may have occurred due to the inherent limitations of voice recognition software.
Discharge Plan
Departure
Patient Disposition: Home (Routine Discharge)
Date of Disposition: 10/29/25
Time of Disposition: 22:19
Patient with high blood pressure during this ER visit?: Yes
Condition: Good
Discharge Problem:
Chest pain
Instructions: Chest Pain (DC), Chest Pain DCA Follow Up, BLOOD PRESSURE
Prescriptions:
No Action
aspirin 81 MG tablet,delayed release (DR/EC)
81 mg PO DAILY
glimepiride 4 mg tablet
4 mg PO DAILY
lisinopril 40 mg tablet
40 mg PO DAILY
ezetimibe 10 mg tablet
10 mg PO DAILY
atorvastatin 80 MG tablet
80 mg PO DAILY
prasugrel HCl 10 mg Tablet
10 mg PO DAILY Qty: 30 11RF
acetaminophen 500 mg Tablet
1,000 mg PO DAILYPRN PRN (Reason: mild pain)
lorazepam 0.5 mg tablet
0.5 mg PO BIDPRN PRN (Reason: anxiety)
krill oil 500 mg Capsule
1,000 mg PO DAILY
Jardiance 10 mg tablet
10 mg PO DAILY
Repatha SureClick 140 mg/mL pen injector
140 mg SC Q2W
Probiotic 20 billion cell capsule
20,000 mmu cells PO DAILY Qty: 20 0RF
cholecalciferol (vitamin D3) [Vitamin D3] 50 mcg (2,000 unit) Tablet
50 mcg PO DAILY
Patient Comments:
Patient has not started taking this medication yet.
Referrals:
Margi Alcocer MD [Active, Cardiology] - Next open appointment
Ellen Herrera PA-C [Family Provider, Family Practice]
Activity Restrictions/Additional Instructions:
RETURN TO THE EMERGENCY DEPARTMENT WITH ANY CHEST PAIN, SHORTNESS OF BREATH/DIFFICULTY BREATHING, BACK PAIN, LIGHTHEADEDNESS OR DIZZINESS, WORSENING CURRENT SYMPTOMS, OR ANY OTHER CONCERNS
- Please continue to take all your medications as prescribed.
- Follow-up with cardiology in a few days for further evaluation/management
- Monitor your symptoms very closely and return to the emergency department with any acute worsening/new symptoms or any other concerns
Interventions
Interventions:
*General Assessment Last Done: 10/29/25 17:05
*Neglect/Abuse Screening Last Done: 10/29/25 17:05
*ED COVID-19 Vaccine History Last Done: 10/29/25 17:05
*ED Influenza Vaccine History Last Done: 10/29/25 17:05
[facility] Risk Assessment Tool Last Done: 10/29/25 17:22
*Risk Screen - Suicide (C-SSRS) Last Done: 10/29/25 17:05
*Nursing Disposition Last Done: 10/29/25 22:30
ED- Cardiac Assessment Last Done: 10/29/25 17:32
ED- Pulmonary Assessment Last Done: 10/29/25 17:35
Discharge Date and Time
Discharge Date/Time: 10/29/25 22:30
Print Language: GEORGIAN
[2025-10-29] MEDS: LOW STRENGTH ASPIRIN 324 MG PO (18:11)
[2025-10-29 18:17] LABS: Hematocrit 39.3 % (37.0-47.0); Hemoglobin 13.2 g/dL (12.0-16.0); Mean Corp Hgb Conc. 33.6 g/dL (33.0-37.0); Mean Corpuscular Volume 83.6 fL (81.0-99.0); Platelet Count 262 10^3/uL (130-400); Red Cell Dist. Width 12.5 % (11.5-14.5)
[2025-10-29 18:31] LABS: ALT (SGPT) 21 U/L (0-35); AST (SGOT) 19 U/L (14-36); Albumin 4.1 g/dl (3.5-5.0); Alkaline Phosphatase 110 U/L (38-126); Blood Urea Nitrogen 14 mg/dl (7-17); Calcium 9.8 mg/dl (8.4-10.2); Carbon Dioxide 24 mmol/L (22-30); Chloride 107 mmol/L (98-107); Estimated Creatinine Clearance 105 ml/min; Glucose 153 mg/dl (70-99); Potassium 3.9 mmol/L (3.5-5.1); Sodium 138 mmol/L (135-145); Total Protein 6.5 g/dl (6.3-8.2); eGFR > 60.00
[2025-10-29 18:42] LABS: Troponin I < 0.012 ng/ml
[2025-10-29 18:53] LABS: Nucleated Red Blood Cells % 0 %
[2025-10-29 21:42] LABS: Troponin I < 0.012 ng/ml
== END 2025-10-29 22:30 | disposition home or self-care (01) ==
LOC: EMR 17:01
PROVIDERS: Nurse Practitioner; Physician Assistant; EMERGENCY PHYSICIAN Emergency Medicine; FAMILY PHYSICIAN Physician Assistant Medical
DX: R07.89 Other chest pain (principal); E11.9 Type 2 diabetes mellitus without complications; E78.00 Pure hypercholesterolemia, unspecified; I10 Essential (primary) hypertension; I25.10 Atherosclerotic heart disease of native coronary artery without angina pectoris; F17.200 Nicotine dependence, unspecified, uncomplicated; I25.2 Old myocardial infarction; Z90.49 Acquired absence of other specified parts of digestive tract; Z95.0 Presence of cardiac pacemaker; Z95.5 Presence of coronary angioplasty implant and graft
CPT/HCPCS: 99285; 71046; 80053; 84484; 85025; 93005